=== PATIENT | male | born 1985 | race Caucasian/White ===

== ENCOUNTER 2020-04-26 01:42 | Inpatient (IN) | payer MEDICAID ==
[~2020-04-26] VITALS: Ht 170.2 cm; Wt 43.2 kg
[2020-04-26] VITALS (12 sets, daily range): BP systolic 103–123; BP diastolic 60–85
[2020-04-26] MEDS ORDERED: ONDANSETRON HCL 4 MG/2 ML VIAL IVP ONE ×2 (02:00→04:45)
[2020-04-26] MEDS ORDERED: SODIUM CHLORIDE 0.9% 1,000 ML IV ONE ×2 (02:00→03:15)
[2020-04-26 02:30] LABS: ABG A-A DIFF O2 37.8 mmHg (10-20.0); ABG BASE EXCESS -4.7 mmol/L (-2.0-3.0); ABG CARBOXYHEMOGLOBIN 0.4 % (0.0-1.5); ABG HCO3 21.8 mmol/L (22.0-26.0); ABG METHEMOGLOBIN 0.2 % (0.0-1.5); ABG OXYGEN CONTENT 22.5 mL/dL (15.0-23.0); ABG OXYGEN SATURATION 96.7 % (95.0-98.0); ABG OXYHEMOGLOBIN 96.1 % (94.0-100.0); ABG PCO2 26 mmHg (35-45); ABG PH 7.476 (7.350-7.450); ABG TOTAL HEMOGLOBIN 16.6 G/dL (12.0-18.0); PO2, ARTERIAL BG 81.8 mmHg (92.0-100.0); SOURCE, BLOOD GAS ARTERIAL; TEMPERATURE, FAHRENHEIT, BG 93.7 FAHREN (96.0-98.6)
[2020-04-26 02:31] LABS: O2 DEVICE,BLOOD GAS ROOM AIR (ROOM AIR); SITE, BLOOD GAS RT RADIAL
[2020-04-26 02:46] LABS: COVID AG,FIA SOURCE NASOPHARYNGEAL
[2020-04-26 03:11] LABS: BASOPHILS % (AUTO) 0.1 % (0.0-2.0); EOSINOPHILS % (AUTO) 0 % (1.0-6.0); HEMOGLOBIN 17.5 g/dL (13.5-17.5); LYMPHOCYTES # (AUTO) 1.1 K/uL (1.0-4.8); LYMPHOCYTES % (AUTO) 5.9 % (22.0-44.0); MEAN CORPUSCULAR HEMOGLOBIN 30.2 pg (26.0-34.0); MEAN CORPUSCULAR HGB CONC 30.8 G/dL (31.0-37.0); MEAN CORPUSCULAR VOLUME 98 fL (80-100); MONOCYTES # (AUTO) 2.1 K/uL (0.1-1.0); MONOCYTES % (AUTO) 11.4 % (2.0-9.0); NEUTROPHILS % (AUTO) 82.6 % (40.0-70.0); PLATELET COUNT (AUTO) 326 K/uL (150-450); RED BLOOD CELL COUNT(AUTO) 5.81 MIL/uL (4.50-5.90); RED CELL DISTRIBUTION WIDTH 13.7 % (11.5-14.5)
[2020-04-26 03:29] LABS: PROTHROMBIN TIME 10.7 SEC (9.4-11.6)
[2020-04-26 03:34] LABS: LIPASE 206 U/L (73-393)
[2020-04-26 03:40] LABS: ALANINE AMINOTRANSFERASE 34 U/L (12-78); ALBUMIN 4.8 g/dL (3.4-5.0); ALKALINE PHOSPHATASE 112 U/L (46-116); ANION GAP 32 mmol/L (8-16); ASPARTATE AMINOTRANSFERASE < 5 U/L (15-37); CALCIUM, TOTAL 10.2 mg/dL (8.8-10.5); CARBON DIOXIDE 24 mmol/L (22-29); CHLORIDE 81 mmol/L (98-107); CREATINE KINASE, TOTAL ONLY 14 U/L (39-308); CREATININE 2.93 mg/dL (0.60-1.30); GLOMERULAR FILTR. RATE CALC 25 mL/min (>60); SODIUM SERUM 137 mmol/L (136-145); TOTAL PROTEIN, SERUM 8.9 g/dL (6.4-8.2); UREA NITROGEN, BLOOD 49 mg/dL (7-18)
[2020-04-26] MEDS ORDERED: VANCOMYCIN HCL 1 GM/D5% WATER 200 ML IV ONE (03:45)
[2020-04-26] MEDS ORDERED: PIPERACILLIN/TAZO 3.375 GM/D5W 50 ML IV ONE (03:45)
[2020-04-26 03:53] LABS: B-TYPE NATRIURETIC PEPTIDE 55 pg/mL (0-100)
[2020-04-26 04:12] LABS: ACETONE,BLOOD 1:16 (NEGATIVE)
[2020-04-26 04:13] LABS: PHOSPHORUS 12.8 mg/dL (2.5-4.9)
[2020-04-26 04:15] LABS: POTASSIUM 2.9 mmol/L (3.5-5.1)
[2020-04-26 04:16] LABS: GLUCOSE,RANDOM 1349 mg/dL (70-110)
[2020-04-26 04:17] LABS: LACTIC ACID 3.9 mmol/L (0.4-2.0)
[2020-04-26] MEDS ORDERED: RINGERS SOLUTION,LACTATED 1,000 ML IV ONE ×2 (04:30→04:45)
[2020-04-26 04:42] LABS: APPEARANCE,URINE CLEAR (CLEAR); BILIRUBIN,URINE NEGATIVE (NEGATIVE); GLUCOSE, URINE (UA) >=1000 mg/dL (NEGATIVE); KETONES,URINE >=80 mg/dL (NEGATIVE); LEUKOCYTE ESTERASE ,URINE NEGATIVE (NEGATIVE); NITRATE,URINE NEGATIVE (NEGATIVE); OCCULT BLOOD,URINE NEGATIVE (NEGATIVE); PROTEIN,URINE NEGATIVE (NEGATIVE); UROBILINOGEN,URINE 0.2 mg/dL (<=1.0)
[2020-04-26] MEDS ORDERED: POTASSIUM CHLORIDE 20 MEQ ER TABLET PO ONE ×2 (05:00→10:15)
[2020-04-26] MEDS: POTASSIUM CHL 10 MEQ/WATER 50 ML IV SCH ×4 (05:01→09:13)
[2020-04-26 05:07] LABS: BACTERIA,URINE Rare /HPF (None Seen); RBC,URINE 0-2 /HPF (0-2); SQUAMOUS EPITHELIAL CELL,UR Few /LPF (None Seen); WBC,URINE 0-2 /HPF (0-5)
[2020-04-26] MEDS ORDERED: ONDANSETRON HCL 4 MG/2 ML VIAL IVP PRN (07:00)
[2020-04-26] MEDS ORDERED: 0.9% SODIUM CHLORIDE 10 ML SYRINGE IVP PRN (07:00)
[2020-04-26] MEDS ORDERED: ACETAMINOPHEN 325 MG TABLET PO PRN ×2 (07:00→21:30)
[2020-04-26] MEDS ORDERED: INSULIN REGULAR, HUMAN 100 UNITS/ML IVP ONE (11:00)
[2020-04-26] MEDS ORDERED: DEXTROSE 50%-WATER 25 GM/50 ML SYRINGE IVP PRN ×2 (11:00→21:30)
[2020-04-26] MEDS ORDERED: POTASSIUM CHLORIDE 40 MEQ in SODIUM CHLORIDE 0.45% 1,000 ML IV PRN (11:00)
[2020-04-26] MEDS ORDERED: SODIUM CHLORIDE 0.9% 1,000 ML IV SCH (11:00)
[2020-04-26] MEDS ORDERED: POTASSIUM CHL 20 MEQ/0.45% NS 1,000 ML IV PRN (11:00)
[2020-04-26] MEDS ORDERED: DEXTROSE 5%-0.45% SODIUM CHL 1,000 ML IV PRN (11:00)
[2020-04-26] MEDS ORDERED: SODIUM CHLORIDE 0.45% 1,000 ML IV PRN (11:00)
[2020-04-26] MEDS ORDERED: INSULIN REGULAR, HUMAN 100 UNITS in SODIUM CHLORIDE 0.9% 99 ML IV SCH ×2 (11:15)
[2020-04-26 11:23] LABS: BASOPHILS % (AUTO) 0.1 % (0.0-2.0); EOSINOPHILS % (AUTO) 0 % (1.0-6.0); HEMATOCRIT 48.9 % (41-53); LYMPHOCYTES # (AUTO) 1.4 K/uL (1.0-4.8); MEAN CORPUSCULAR HGB CONC 32.8 G/dL (31.0-37.0); MEAN CORPUSCULAR VOLUME 92 fL (80-100); MONOCYTES # (AUTO) 2.2 K/uL (0.1-1.0); MONOCYTES % (AUTO) 9.3 % (2.0-9.0); NEUTROPHILS # (AUTO) 19.8 K/uL (1.8-7.7); NEUTROPHILS % (AUTO) 84.6 % (40.0-70.0); PLATELET COUNT (AUTO) 288 K/uL (150-450); RED BLOOD CELL COUNT(AUTO) 5.34 MIL/uL (4.50-5.90); RED CELL DISTRIBUTION WIDTH 13.2 % (11.5-14.5)
[2020-04-26 11:33] LABS: ALBUMIN 4.1 g/dL (3.4-5.0); BILIRUBIN,TOTAL 0.8 mg/dL (0.1-1.0); CALCIUM, TOTAL 9.4 mg/dL (8.8-10.5); CREATININE 1.61 mg/dL (0.60-1.30); POTASSIUM 3.3 mmol/L (3.5-5.1); TOTAL PROTEIN, SERUM 7.5 g/dL (6.4-8.2)
[2020-04-26] MEDS ORDERED: POTASSIUM CHLORIDE 40 MEQ in SODIUM CHLORIDE 0.9% 1,000 ML IV ONE (12:30)
[2020-04-26] MEDS: INSULIN REGULAR, HUMAN 100 UNITS/ML IVP PRN ×2 (13:50→15:00)
[2020-04-26 17:13] LABS: CALCIUM, TOTAL 6.8 mg/dL (8.8-10.5); CARBON DIOXIDE 21 mmol/L (22-29); CHLORIDE 120 mmol/L (98-107); CREATININE 1.15 mg/dL (0.60-1.30); GLOMERULAR FILTR. RATE CALC > 60 mL/min (>60); GLUCOSE,RANDOM 197 mg/dL (70-110); POTASSIUM 3.6 mmol/L (3.5-5.1); UREA NITROGEN, BLOOD 25 mg/dL (7-18)
[2020-04-26 17:26] LABS: ANION GAP 16 mmol/L (8-16); SODIUM SERUM 157 mmol/L (136-145)
[2020-04-26] MEDS ORDERED: POTASSIUM CHLORIDE 40 MEQ in SODIUM CHLORIDE 0.45% 1,000 ML IV ONE (17:45)
[2020-04-26 20:11] LABS: ANION GAP 10 mmol/L (8-16); CARBON DIOXIDE 32 mmol/L (22-29); CHLORIDE 117 mmol/L (98-107); CREATININE 1.32 mg/dL (0.60-1.30); GLUCOSE,RANDOM 87 mg/dL (70-110); POTASSIUM 3.3 mmol/L (3.5-5.1); SODIUM SERUM 159 mmol/L (136-145); UREA NITROGEN, BLOOD 28 mg/dL (7-18)
[2020-04-26 20:12] LABS: CALCIUM, TOTAL 9.2 mg/dL (8.8-10.5); GLOMERULAR FILTR. RATE CALC > 60 mL/min (>60)
[2020-04-26 20:35] LABS: BASOPHILS % (AUTO) 0.2 % (0.0-2.0); EOSINOPHILS % (AUTO) 0.1 % (1.0-6.0); HEMATOCRIT 44.8 % (41-53); LYMPHOCYTES # (AUTO) 0.7 K/uL (1.0-4.8); LYMPHOCYTES % (AUTO) 4.3 % (22.0-44.0); MEAN CORPUSCULAR HEMOGLOBIN 30.3 pg (26.0-34.0); MEAN CORPUSCULAR HGB CONC 33.5 G/dL (31.0-37.0); MEAN CORPUSCULAR VOLUME 90 fL (80-100); MONOCYTES % (AUTO) 11.9 % (2.0-9.0); NEUTROPHILS # (AUTO) 14.3 K/uL (1.8-7.7); NEUTROPHILS % (AUTO) 83.5 % (40.0-70.0); PLATELET COUNT (AUTO) 258 K/uL (150-450); RED BLOOD CELL COUNT(AUTO) 4.95 MIL/uL (4.50-5.90); RED CELL DISTRIBUTION WIDTH 13.2 % (11.5-14.5)
[2020-04-26] MEDS ORDERED: MAGNESIUM OXIDE 400 MG TABLET PO PRN (21:30)
[2020-04-26] MEDS ORDERED: MAGNESIUM SULFATE 2 GM/WATER 50 ML IV PRN (21:30)
[2020-04-26] MEDS ORDERED: MAGNESIUM SULFATE 4 GM/WATER 100 ML IV PRN (21:30)
[2020-04-26] MEDS ORDERED: IPRATROPIUM BROMIDE 0.5 MG/2.5 ML NEB SOLUTION NEB PRN (21:30)
[2020-04-26] MEDS ORDERED: ALBUTEROL SULFATE 2.5 MG/0.5 ML NEB SOLUTION NEB PRN (21:30)
[2020-04-26] MEDS ORDERED: ZOLPIDEM TARTRATE 5 MG TABLET PO PRN (21:30)
[2020-04-26] MEDS ORDERED: OxyCODONE HCL/ACETAMINOPHEN 5-325 MG TABLET PO PRN (21:30)
[2020-04-26] MEDS ORDERED: BISACODYL 10 MG RECTAL RECTAL SUPPOSITORY PR PRN (21:30)
[2020-04-26 21:56] LABS: ALBUMIN 3.5 g/dL (3.4-5.0)
[2020-04-26 23:07] LABS: GLUCOMETER DEV NAME(LOC) AHU.; GLUCOSE,POINT OF CARE 143 MG/DL (70-110)
[2020-04-27] VITALS (11 sets, daily range): BP systolic 104–133; BP diastolic 57–87
[2020-04-27] MEDS: ONDANSETRON HCL 4 MG/2 ML VIAL IVP PRN ×4 (02:23→18:00)
[2020-04-27] MEDS: MORPHINE SULFATE 2 MG/ML SYRINGE IVP PRN ×3 (02:24→10:46)
[2020-04-27] MEDS: PIPERACILLIN/TAZO 3.375 GM/D5W 50 ML IV SCH ×5 (03:25→22:20)
[2020-04-27] MEDS: DEXTROSE 5%-WATER 1,000 ML IV SCH ×2 (03:25→13:00)
[2020-04-27 05:42] LABS: MAGNESIUM 2.4 mg/dL (1.80-2.40); PHOSPHORUS 3.3 mg/dL (2.5-4.9)
[2020-04-27 06:36] LABS: GLUCOMETER DEV NAME(LOC) AHU.; GLUCOSE,POINT OF CARE 390 MG/DL (70-110)
[2020-04-27] MEDS: INSULIN LISPRO 100 UNITS/ML SQ PRN ×4 (07:33→22:19)
[2020-04-27] MEDS: HEPARIN SODIUM,PORCINE 5,000 UNITS/ML VIAL SQ SCH ×3 (09:39→16:07)
[2020-04-27 09:54] LABS: GLUCOMETER DEV NAME(LOC) AHU.; GLUCOSE,POINT OF CARE 298 MG/DL (70-110)
[2020-04-27 09:54] LABS: GLUCOMETER DEV NAME(LOC) AHU.; GLUCOSE,POINT OF CARE 374 MG/DL (70-110)
[2020-04-27 11:28] LABS: GLUCOMETER DEV NAME(LOC) AHU.; GLUCOSE,POINT OF CARE 300 MG/DL (70-110)
[2020-04-27 12:53] LABS: GLUCOMETER DEV NAME(LOC) AHU.; GLUCOSE,POINT OF CARE 258 MG/DL (70-110)
[2020-04-27 14:31] LABS: GLUCOMETER DEV NAME(LOC) AHU.; GLUCOSE,POINT OF CARE 241 MG/DL (70-110)
[2020-04-27 15:53] LABS: GLUCOMETER DEV NAME(LOC) AHU.; GLUCOSE,POINT OF CARE 240 MG/DL (70-110)
[2020-04-27 16:30] LABS: HEMOGLOBIN 16.7 g/dL (13.5-17.5); MEAN CORPUSCULAR HGB CONC 33.4 G/dL (31.0-37.0); MEAN CORPUSCULAR VOLUME 90 fL (80-100); PLATELET COUNT (AUTO) 273 K/uL (150-450); RED BLOOD CELL COUNT(AUTO) 5.55 MIL/uL (4.50-5.90); RED CELL DISTRIBUTION WIDTH 13.4 % (11.5-14.5)
[2020-04-27 16:39] LABS: ANION GAP 8 mmol/L (8-16); CALCIUM, TOTAL 9.8 mg/dL (8.8-10.5); CARBON DIOXIDE 39 mmol/L (22-29); CHLORIDE 103 mmol/L (98-107); CREATININE 1.32 mg/dL (0.60-1.30); GLOMERULAR FILTR. RATE CALC > 60 mL/min (>60); GLUCOSE,RANDOM 255 mg/dL (70-110); SODIUM SERUM 150 mmol/L (136-145); UREA NITROGEN, BLOOD 35 mg/dL (7-18)
[2020-04-27 16:41] LABS: POTASSIUM 2.8 mmol/L (3.5-5.1)
[2020-04-27] MEDS ORDERED: POTASSIUM CHLORIDE 20 MEQ ER TABLET PO ONE ×2 (16:45→23:55)
[2020-04-27] MEDS ORDERED: MAGNESIUM OXIDE 400 MG TABLET PO PRN (16:45)
[2020-04-27] MEDS ORDERED: MAGNESIUM SULFATE 4 GM/WATER 100 ML IV PRN (16:45)
[2020-04-27] MEDS ORDERED: MAGNESIUM SULFATE 2 GM/WATER 50 ML IV PRN (16:45)
[2020-04-27 16:51] LABS: ALBUMIN 3.4 g/dL (3.4-5.0); BILIRUBIN,TOTAL 0.9 mg/dL (0.1-1.0); CALCIUM, TOTAL 10.3 mg/dL (8.8-10.5); CREATININE 1.4 mg/dL (0.60-1.30); FREE T4 (FREE THYROXINE) 1.59 ng/dL (0.76-1.46); MAGNESIUM 2.7 mg/dL (1.80-2.40); PHOSPHORUS 2.5 mg/dL (2.5-4.9); TOTAL PROTEIN, SERUM 7.6 g/dL (6.4-8.2)
[2020-04-27 16:57] LABS: POTASSIUM 2.9 mmol/L (3.5-5.1)
[2020-04-27] MEDS ORDERED: PROPRANOLOL HCL 10 MG TABLET PO SCH (17:00)
[2020-04-27 17:23] LABS: BAND NEUTROPHILS % (MANUAL) 30 % (0-5); LYMPHOCYTES % (MANUAL) 8 % (22-44); MONOCYTES % (MANUAL) 9 % (2-9); SEGMENTED NEUTROPHILS % 53 % (40-70)
[2020-04-27] MEDS ORDERED: SODIUM CHLORIDE 0.9% 1,000 ML ONE (17:58)
[2020-04-27 19:49] LABS: AMPHET/METH SCREEN,URINE NEGATIVE (NEGATIVE); BARBITURATE SCREEN, URINE NEGATIVE (NEGATIVE); BENZODIAZEPINES SCREEN,URINE NEGATIVE (NEGATIVE); CANNABINOID SCREEN,URINE NEGATIVE (NEGATIVE); COCAINE SCREEN,URINE NEGATIVE (NEGATIVE); METHADONE SCREEN, URINE NEGATIVE (NEGATIVE); OPIATE SCREEN,URINE POSITIVE (NEGATIVE)
[2020-04-27 19:51] LABS: PHENCYCLIDINE SCREEN,URINE NEGATIVE (NEGATIVE)
[2020-04-27] MEDS: POTASSIUM CHL 10 MEQ/WATER 50 ML IV PRN ×3 (20:15→22:20)
[2020-04-27 21:20] LABS: CALCIUM, TOTAL 9.7 mg/dL (8.8-10.5); CREATININE 1.52 mg/dL (0.60-1.30)
[2020-04-27 22:15] LABS: GLUCOMETER DEV NAME(LOC) AHU.; GLUCOSE,POINT OF CARE 318 MG/DL (70-110)
[2020-04-27 22:15] LABS: GLUCOMETER DEV NAME(LOC) AHU.; GLUCOSE,POINT OF CARE 243 MG/DL (70-110)
[2020-04-27] MEDS: PROPRANOLOL HCL 20 MG TABLET PO SCH (23:24)
[2020-04-28] VITALS: BP 103/65
[2020-04-28] MEDS: SODIUM CHLORIDE 0.45% 1,000 ML IV SCH ×2 (00:34→18:30)
[2020-04-28] MEDS: HEPARIN SODIUM,PORCINE 5,000 UNITS/ML VIAL SQ SCH ×4 (02:09→23:47)
[2020-04-28] MEDS: ONDANSETRON HCL 4 MG/2 ML VIAL IVP PRN ×2 (02:09→10:32)
[2020-04-28] MEDS: PROPRANOLOL HCL 20 MG TABLET PO SCH ×4 (03:27→20:55)
[2020-04-28 03:28] LABS: CALCIUM, TOTAL 9.1 mg/dL (8.8-10.5); CREATININE 1.53 mg/dL (0.60-1.30); MAGNESIUM 2.3 mg/dL (1.80-2.40); POTASSIUM 3.3 mmol/L (3.5-5.1)
[2020-04-28] MEDS: PIPERACILLIN/TAZO 3.375 GM/D5W 50 ML IV SCH ×4 (03:45→15:31)
[2020-04-28 04:34] VITALS: BP 95/63
[2020-04-28] MEDS ORDERED: IOVERSOL 350 MG/ML 100 ML VIAL ONE (04:55)
[2020-04-28] MEDS: INSULIN LISPRO 100 UNITS/ML SQ PRN ×4 (05:57→20:55)
[2020-04-28 07:21] VITALS: BP 97/59
[2020-04-28] MEDS: POTASSIUM CHL 10 MEQ/WATER 50 ML IV PRN ×5 (10:32→22:44)
[2020-04-28 11:13] LABS: CALCIUM, TOTAL 9.3 mg/dL (8.8-10.5); CREATININE 1.56 mg/dL (0.60-1.30)
[2020-04-28 11:17] LABS: POTASSIUM 2.8 mmol/L (3.5-5.1)
[2020-04-28 11:46] VITALS: BP 98/65
[2020-04-28 15:44] VITALS: BP 100/60
[2020-04-28 17:37] LABS: CALCIUM, TOTAL 9.3 mg/dL (8.8-10.5); CREATININE 1.73 mg/dL (0.60-1.30); POTASSIUM 3.1 mmol/L (3.5-5.1)
[2020-04-28 20:46] VITALS: BP 98/55
[2020-04-28 22:15] LABS: ANION GAP 4 mmol/L (8-16); CALCIUM, TOTAL 8.7 mg/dL (8.8-10.5); CARBON DIOXIDE 40 mmol/L (22-29); CHLORIDE 96 mmol/L (98-107); CREATININE 1.34 mg/dL (0.60-1.30); GLOMERULAR FILTR. RATE CALC > 60 mL/min (>60); GLUCOSE,RANDOM 162 mg/dL (70-110); SODIUM SERUM 140 mmol/L (136-145); UREA NITROGEN, BLOOD 41 mg/dL (7-18)
[2020-04-28 22:18] LABS: POTASSIUM 2.5 mmol/L (3.5-5.1)
[2020-04-29] MEDS: POTASSIUM CHL 10 MEQ/WATER 50 ML IV PRN ×7 (00:16→16:05)
[2020-04-29 00:42] VITALS: BP 117/72
[2020-04-29] MEDS: PROPRANOLOL HCL 20 MG TABLET PO SCH ×4 (03:15→22:33)
[2020-04-29] MEDS: PIPERACILLIN/TAZO 3.375 GM/D5W 50 ML IV SCH ×4 (03:21→22:33)
[2020-04-29 04:00] VITALS: BP 102/68
[2020-04-29] MEDS: INSULIN LISPRO 100 UNITS/ML SQ PRN ×4 (06:05→23:19)
[2020-04-29 07:25] VITALS: BP 105/60
[2020-04-29] MEDS: HEPARIN SODIUM,PORCINE 5,000 UNITS/ML VIAL SQ SCH ×2 (08:23→16:04)
[2020-04-29] MEDS: SODIUM CHLORIDE 0.45% 1,000 ML IV SCH ×2 (08:24→22:33)
[2020-04-29 09:19] LABS: ANION GAP 19 mmol/L (8-16); CALCIUM, TOTAL 8.5 mg/dL (8.8-10.5); CARBON DIOXIDE 29 mmol/L (22-29); CHLORIDE 93 mmol/L (98-107); CREATININE 1.24 mg/dL (0.60-1.30); GLOMERULAR FILTR. RATE CALC > 60 mL/min (>60); GLUCOSE,RANDOM 284 mg/dL (70-110); SODIUM SERUM 141 mmol/L (136-145); UREA NITROGEN, BLOOD 39 mg/dL (7-18)
[2020-04-29 09:23] LABS: POTASSIUM 2.9 mmol/L (3.5-5.1)
[2020-04-29 13:00] VITALS: BP 107/67
[2020-04-29 16:15] VITALS: BP 107/67
[2020-04-29 16:52] LABS: ANION GAP 13 mmol/L (8-16); CALCIUM, TOTAL 8.4 mg/dL (8.8-10.5); CARBON DIOXIDE 30 mmol/L (22-29); CHLORIDE 96 mmol/L (98-107); CREATININE 0.96 mg/dL (0.60-1.30); GLOMERULAR FILTR. RATE CALC > 60 mL/min (>60); GLUCOSE,RANDOM 215 mg/dL (70-110); POTASSIUM 3.5 mmol/L (3.5-5.1); SODIUM SERUM 139 mmol/L (136-145); UREA NITROGEN, BLOOD 30 mg/dL (7-18)
[2020-04-29 20:36] VITALS: BP 112/58
[2020-04-30] VITALS (8 sets, daily range): BP systolic 97–133; BP diastolic 56–70
[2020-04-30] MEDS: PIPERACILLIN/TAZO 3.375 GM/D5W 50 ML IV SCH ×4 (02:58→21:05)
[2020-04-30] MEDS: PROPRANOLOL HCL 20 MG TABLET PO SCH ×4 (02:58→21:04)
[2020-04-30] MEDS: INSULIN LISPRO 100 UNITS/ML SQ PRN ×3 (05:59→21:14)
[2020-04-30] MEDS: SODIUM CHLORIDE 0.45% 1,000 ML IV SCH (06:00)
[2020-04-30 07:34] LABS: ANION GAP 13 mmol/L (8-16); CALCIUM, TOTAL 9.4 mg/dL (8.8-10.5); CARBON DIOXIDE 35 mmol/L (22-29); CHLORIDE 95 mmol/L (98-107); CREATININE 1.01 mg/dL (0.60-1.30); GLOMERULAR FILTR. RATE CALC > 60 mL/min (>60); GLUCOSE,RANDOM 277 mg/dL (70-110); SODIUM SERUM 143 mmol/L (136-145); UREA NITROGEN, BLOOD 20 mg/dL (7-18)
[2020-04-30 07:38] LABS: POTASSIUM 2.4 mmol/L (3.5-5.1)
[2020-04-30] MEDS: POTASSIUM CHLORIDE 20 MEQ ER TABLET PO PRN (07:41)
[2020-04-30] MEDS: HEPARIN SODIUM,PORCINE 5,000 UNITS/ML VIAL SQ SCH ×4 (08:39→22:31)
[2020-04-30] MEDS: PANTOPRAZOLE SODIUM 40 MG DR TABLET PO SCH (11:08)
[2020-04-30] MEDS: THIAMINE 100 MG TABLET PO SCH (11:08)
[2020-04-30] MEDS: MULTIVITAMINS, THERAPEUTIC TABLET PO SCH (11:08)
[2020-04-30] MEDS: FOLIC ACID 1 MG TABLET PO SCH (11:08)
[2020-04-30] MEDS: SODIUM CHLORIDE 0.9% 1,000 ML IV SCH ×3 (11:09→22:33)
[2020-04-30] MEDS: POTASSIUM CHL 10 MEQ/WATER 50 ML IV PRN ×3 (12:37→16:18)
[2020-04-30] MEDS ORDERED: *CLINICAL-PERIPHERAL PARENTERAL NUTRITION DOSING CLINICAL ONE (13:45)
[2020-04-30 18:10] LABS: MAGNESIUM 2.6 mg/dL (1.80-2.40)
[2020-04-30] MEDS ORDERED: SODIUM CHLORIDE 0.9% 1,000 ML IV SCH (18:45)
[2020-04-30] MEDS ORDERED: PPN SOLUTION 1 EA, SODIUM CHLORIDE 70 MEQ, SODIUM PHOS,M-BASIC-D-BASIC 30 MEQ, POTASSIU... IV SCH ×8 (22:00)
[2020-05-01] VITALS (7 sets, daily range): BP systolic 90–104; BP diastolic 50–62
[2020-05-01] MEDS: POTASSIUM CHLORIDE 20 MEQ ER TABLET PO PRN (00:05)
[2020-05-01] MEDS: ONDANSETRON HCL 4 MG/2 ML VIAL IVP PRN (00:05)
[2020-05-01] MEDS: PROPRANOLOL HCL 20 MG TABLET PO SCH ×4 (03:15→21:15)
[2020-05-01] MEDS: PIPERACILLIN/TAZO 3.375 GM/D5W 50 ML IV SCH ×4 (04:20→22:30)
[2020-05-01] MEDS: INSULIN LISPRO 100 UNITS/ML SQ PRN ×4 (06:18→20:33)
[2020-05-01 06:40] LABS: EOSINOPHILS % (AUTO) 0.1 % (1.0-6.0); HEMATOCRIT 37.7 % (41-53); HEMOGLOBIN 12.6 g/dL (13.5-17.5); LYMPHOCYTES # (AUTO) 0.7 K/uL (1.0-4.8); LYMPHOCYTES % (AUTO) 7.8 % (22.0-44.0); MEAN CORPUSCULAR HEMOGLOBIN 30.2 pg (26.0-34.0); MEAN CORPUSCULAR HGB CONC 33.4 G/dL (31.0-37.0); MEAN CORPUSCULAR VOLUME 90 fL (80-100); NEUTROPHILS # (AUTO) 7.3 K/uL (1.8-7.7); NEUTROPHILS % (AUTO) 81.1 % (40.0-70.0); PLATELET COUNT (AUTO) 213 K/uL (150-450); RED BLOOD CELL COUNT(AUTO) 4.18 MIL/uL (4.50-5.90); RED CELL DISTRIBUTION WIDTH 12.7 % (11.5-14.5)
[2020-05-01 07:05] LABS: ALANINE AMINOTRANSFERASE 27 U/L (12-78); ALBUMIN 2.4 g/dL (3.4-5.0); ALKALINE PHOSPHATASE 55 U/L (46-116); ANION GAP 13 mmol/L (8-16); ASPARTATE AMINOTRANSFERASE 39 U/L (15-37); BILIRUBIN,TOTAL 0.6 mg/dL (0.1-1.0); CARBON DIOXIDE 35 mmol/L (22-29); CHLORIDE 98 mmol/L (98-107); CREATININE 0.91 mg/dL (0.60-1.30); GLOMERULAR FILTR. RATE CALC > 60 mL/min (>60); GLUCOSE,RANDOM 315 mg/dL (70-110); SODIUM SERUM 146 mmol/L (136-145); TOTAL PROTEIN, SERUM 5.9 g/dL (6.4-8.2); UREA NITROGEN, BLOOD 29 mg/dL (7-18)
[2020-05-01 07:08] LABS: POTASSIUM 2.6 mmol/L (3.5-5.1)
[2020-05-01] MEDS: HEPARIN SODIUM,PORCINE 5,000 UNITS/ML VIAL SQ SCH ×2 (08:00→16:07)
[2020-05-01] MEDS: POTASSIUM CHL 10 MEQ/WATER 50 ML IV PRN ×4 (08:23→18:18)
[2020-05-01] MEDS: FOLIC ACID 1 MG TABLET PO SCH (09:28)
[2020-05-01] MEDS: THIAMINE 100 MG TABLET PO SCH (09:30)
[2020-05-01] MEDS: MULTIVITAMINS, THERAPEUTIC TABLET PO SCH (09:30)
[2020-05-01] MEDS: PANTOPRAZOLE SODIUM 40 MG DR TABLET PO SCH (09:31)
[2020-05-01] MEDS ORDERED: MEPERIDINE-PF 25 MG/ML VIAL IVP PRN (10:15)
[2020-05-01] MEDS ORDERED: FentaNYL CITRATE PF 100 MCG/2 ML VIAL IVP PRN (10:15)
[2020-05-01] MEDS ORDERED: HYDROmorphone 2 MG/ML VIAL IVP PRN (10:15)
[2020-05-01] MEDS ORDERED: BUPIVACAINE LIPOSOME/PF 1.3%-13.3MG/ML SUSPENSION 20 ML VIAL INJ ONE (10:30)
[2020-05-01] MEDS: SODIUM CHLORIDE 0.9% 1,000 ML IV SCH ×3 (11:03→22:34)
[2020-05-01] MEDS ORDERED: RINGERS SOLUTION,LACTATED 1,000 ML IV ONE (11:30)
[2020-05-01] MEDS ORDERED: EPHEDrine SULFATE 50 MG/ML VIAL IM ONE (12:00)
[2020-05-01] MEDS ORDERED: FentaNYL CITRATE PF 100 MCG/2 ML VIAL IVP ONE (12:00)
[2020-05-01] MEDS ORDERED: ONDANSETRON HCL 4 MG/2 ML VIAL IVP ONE (12:00)
[2020-05-01] MEDS ORDERED: SUCCINYLCHOLINE CHLORIDE 20 MG/ML 10 ML VIAL IVP ONE (12:00)
[2020-05-01] MEDS ORDERED: PROPOFOL 1% 20 ML VIAL IVP ONE (12:00)
[2020-05-01] MEDS ORDERED: MIDAZOLAM HCL 2 MG/2 ML VIAL IVP ONE (12:00)
[2020-05-01] MEDS ORDERED: LIDOCAINE/PF 2% 5 ML VIAL IM ONE (12:00)
[2020-05-01] MEDS ORDERED: 0.9% SODIUM CHLORIDE 10 ML VIAL IVP ONE (12:00)
[2020-05-01] MEDS ORDERED: BUPIVACAINE HCL/PF 0.5% 30 ML VIAL ONE (12:13)
[2020-05-01 12:31] LABS: GLUCOMETER DEV NAME(LOC) SDS.; GLUCOSE,POINT OF CARE 208 MG/DL (70-110)
[2020-05-01] MEDS ORDERED: SODIUM CHLORIDE 0.9% 2,000 ML ONE (12:59)
[2020-05-01] MEDS ORDERED: SUGAMMADEX SODIUM 200 MG/2 ML VIAL IVP ONE (13:33)
[2020-05-01] MEDS: OXYGEN THERAPY IH SCH (20:10)
[2020-05-01] MEDS ORDERED: [UNRECOGNIZED DRUG - OTHER] IV SCH ×6 (22:00)
[2020-05-01] MEDS ORDERED: POTASSIUM CHLORIDE IV SCH ×6 (22:00)
[2020-05-01] MEDS ORDERED: SODIUM CHLORIDE IV SCH ×6 (22:00)
[2020-05-01] MEDS ORDERED: PPN IV SCH ×6 (22:00)
[2020-05-02] VITALS (7 sets, daily range): BP systolic 96–117; BP diastolic 50–71
[2020-05-02] MEDS: HEPARIN SODIUM,PORCINE 5,000 UNITS/ML VIAL SQ SCH ×4 (00:17→16:53)
[2020-05-02] MEDS: PROPRANOLOL HCL 20 MG TABLET PO SCH ×4 (03:15→21:03)
[2020-05-02] MEDS: PIPERACILLIN/TAZO 3.375 GM/D5W 50 ML IV SCH ×4 (03:54→21:04)
[2020-05-02 05:43] LABS: GLUCOMETER DEV NAME(LOC) SDS.; GLUCOSE,POINT OF CARE 150 MG/DL (70-110)
[2020-05-02 07:48] LABS: BASOPHILS % (AUTO) 0.4 % (0.0-2.0); EOSINOPHILS % (AUTO) 0.2 % (1.0-6.0); HEMATOCRIT 31.5 % (41-53); HEMOGLOBIN 10.6 g/dL (13.5-17.5); LYMPHOCYTES # (AUTO) 0.7 K/uL (1.0-4.8); MEAN CORPUSCULAR HEMOGLOBIN 30.6 pg (26.0-34.0); MEAN CORPUSCULAR HGB CONC 33.8 G/dL (31.0-37.0); MEAN CORPUSCULAR VOLUME 91 fL (80-100); MONOCYTES # (AUTO) 1.1 K/uL (0.1-1.0); MONOCYTES % (AUTO) 12.1 % (2.0-9.0); NEUTROPHILS # (AUTO) 7.2 K/uL (1.8-7.7); NEUTROPHILS % (AUTO) 79.3 % (40.0-70.0); PLATELET COUNT (AUTO) 169 K/uL (150-450); RED BLOOD CELL COUNT(AUTO) 3.48 MIL/uL (4.50-5.90); RED CELL DISTRIBUTION WIDTH 12.5 % (11.5-14.5)
[2020-05-02] MEDS: OXYGEN THERAPY IH SCH ×2 (08:00→21:16)
[2020-05-02 08:14] LABS: ANION GAP 11 mmol/L (8-16); CALCIUM, TOTAL 7.8 mg/dL (8.8-10.5); CARBON DIOXIDE 27 mmol/L (22-29); CHLORIDE 109 mmol/L (98-107); GLUCOSE,RANDOM 165 mg/dL (70-110); PHOSPHORUS 1.8 mg/dL (2.5-4.9); SODIUM SERUM 147 mmol/L (136-145); UREA NITROGEN, BLOOD 18 mg/dL (7-18)
[2020-05-02 08:27] LABS: CREATININE 0.66 mg/dL (0.60-1.30); GLOMERULAR FILTR. RATE CALC > 60 mL/min (>60)
[2020-05-02] MEDS: MULTIVITAMINS, THERAPEUTIC TABLET PO SCH (08:40)
[2020-05-02] MEDS: PANTOPRAZOLE SODIUM 40 MG DR TABLET PO SCH (08:40)
[2020-05-02] MEDS: FOLIC ACID 1 MG TABLET PO SCH (08:41)
[2020-05-02] MEDS: THIAMINE 100 MG TABLET PO SCH (08:41)
[2020-05-02 08:45] LABS: POTASSIUM 2.6 mmol/L (3.5-5.1)
[2020-05-02] MEDS: POTASSIUM CHL 10 MEQ/WATER 50 ML IV PRN (08:46)
[2020-05-02] MEDS ORDERED: POTASSIUM PHOS,M-BASIC-D-BASIC 30 MMOL in DEXTROSE 5%-WATER 250 ML IV ONE (09:00)
[2020-05-02] MEDS: METOCLOPRAMIDE HCL 5 MG/ML 2 ML VIAL IVP SCH ×3 (11:59→21:02)
[2020-05-02] MEDS: INSULIN LISPRO 100 UNITS/ML SQ PRN ×3 (12:00→21:04)
[2020-05-02] MEDS: SODIUM CHLORIDE 0.9% 1,000 ML IV SCH ×2 (13:41→21:05)
[2020-05-02] MEDS ORDERED: POTASSIUM PHOS M BASIC D BASIC IV SCH ×7 (22:00)
[2020-05-02] MEDS ORDERED: PPN IV SCH ×7 (22:00)
[2020-05-02] MEDS ORDERED: [UNRECOGNIZED DRUG - OTHER] IV SCH ×7 (22:00)
[2020-05-02] MEDS ORDERED: SODIUM CHLORIDE IV SCH ×7 (22:00)
[2020-05-03] MEDS: HEPARIN SODIUM,PORCINE 5,000 UNITS/ML VIAL SQ SCH ×3 (00:03→16:21)
[2020-05-03 03:35] VITALS: BP 112/63
[2020-05-03] MEDS: PIPERACILLIN/TAZO 3.375 GM/D5W 50 ML IV SCH ×4 (03:42→22:51)
[2020-05-03] MEDS: PROPRANOLOL HCL 20 MG TABLET PO SCH ×5 (03:42→21:15)
[2020-05-03] MEDS: MORPHINE SULFATE 2 MG/ML SYRINGE IVP PRN ×2 (03:43→21:18)
[2020-05-03] MEDS: METOCLOPRAMIDE HCL 5 MG/ML 2 ML VIAL IVP SCH ×4 (05:57→21:13)
[2020-05-03] MEDS: INSULIN LISPRO 100 UNITS/ML SQ PRN ×4 (06:00→21:53)
[2020-05-03 07:37] VITALS: BP 101/55
[2020-05-03 07:57] LABS: EOSINOPHILS % (AUTO) 0.4 % (1.0-6.0); HEMATOCRIT 30.7 % (41-53); HEMOGLOBIN 10.5 g/dL (13.5-17.5); LYMPHOCYTES % (AUTO) 9.9 % (22.0-44.0); MEAN CORPUSCULAR HEMOGLOBIN 30.7 pg (26.0-34.0); MEAN CORPUSCULAR HGB CONC 34.3 G/dL (31.0-37.0); MEAN CORPUSCULAR VOLUME 89 fL (80-100); MONOCYTES # (AUTO) 0.9 K/uL (0.1-1.0); MONOCYTES % (AUTO) 8.7 % (2.0-9.0); NEUTROPHILS # (AUTO) 8.1 K/uL (1.8-7.7); PLATELET COUNT (AUTO) 255 K/uL (150-450); RED BLOOD CELL COUNT(AUTO) 3.43 MIL/uL (4.50-5.90); RED CELL DISTRIBUTION WIDTH 12.6 % (11.5-14.5)
[2020-05-03] MEDS: OXYGEN THERAPY IH SCH ×2 (08:00→20:00)
[2020-05-03] MEDS: FOLIC ACID 1 MG TABLET PO SCH (08:11)
[2020-05-03] MEDS: THIAMINE 100 MG TABLET PO SCH (08:12)
[2020-05-03] MEDS: MULTIVITAMINS, THERAPEUTIC TABLET PO SCH (08:12)
[2020-05-03] MEDS: PANTOPRAZOLE SODIUM 40 MG DR TABLET PO SCH (08:13)
[2020-05-03 08:14] LABS: ALBUMIN 1.7 g/dL (3.4-5.0); ANION GAP 9 mmol/L (8-16); CALCIUM, TOTAL 8.1 mg/dL (8.8-10.5); CARBON DIOXIDE 27 mmol/L (22-29); CHLORIDE 106 mmol/L (98-107); CREATININE 0.61 mg/dL (0.60-1.30); GLOMERULAR FILTR. RATE CALC > 60 mL/min (>60); GLUCOSE,RANDOM 301 mg/dL (70-110); PHOSPHORUS 1.6 mg/dL (2.5-4.9); SODIUM SERUM 142 mmol/L (136-145); UREA NITROGEN, BLOOD 21 mg/dL (7-18)
[2020-05-03 08:16] LABS: POTASSIUM 2.6 mmol/L (3.5-5.1)
[2020-05-03] MEDS: POTASSIUM CHL 10 MEQ/WATER 50 ML IV PRN ×4 (08:22→21:15)
[2020-05-03] MEDS ORDERED: POTASSIUM PHOS,M-BASIC-D-BASIC 30 MMOL in DEXTROSE 5%-WATER 250 ML IV ONE (08:30)
[2020-05-03 11:34] VITALS: BP 105/55
[2020-05-03 15:44] VITALS: BP 99/59
[2020-05-03 19:50] VITALS: BP 98/67
[2020-05-03] MEDS: SODIUM CHLORIDE 0.9% 1,000 ML IV SCH (22:51)
[2020-05-03] MEDS: SODIUM CHLORIDE IV SCH ×7 (22:52)
[2020-05-03] MEDS: PPN IV SCH ×7 (22:52)
[2020-05-03] MEDS: POTASSIUM PHOS M BASIC D BASIC IV SCH ×7 (22:52)
[2020-05-03] MEDS: [UNRECOGNIZED DRUG - OTHER] IV SCH ×7 (22:52)
[2020-05-04] VITALS (7 sets, daily range): BP systolic 111–126; BP diastolic 56–74
[2020-05-04] MEDS: HEPARIN SODIUM,PORCINE 5,000 UNITS/ML VIAL SQ SCH ×3 (00:43→16:35)
[2020-05-04] MEDS: PROPRANOLOL HCL 20 MG TABLET PO SCH ×3 (03:15→16:35)
[2020-05-04] MEDS: PIPERACILLIN/TAZO 3.375 GM/D5W 50 ML IV SCH ×4 (04:18→22:07)
[2020-05-04] MEDS: INSULIN LISPRO 100 UNITS/ML SQ PRN ×4 (06:02→20:29)
[2020-05-04] MEDS: METOCLOPRAMIDE HCL 5 MG/ML 2 ML VIAL IVP SCH ×4 (06:49→20:13)
[2020-05-04 07:50] LABS: BASOPHILS % (AUTO) 0.2 % (0.0-2.0); EOSINOPHILS % (AUTO) 0.8 % (1.0-6.0); HEMATOCRIT 29.5 % (41-53); HEMOGLOBIN 9.9 g/dL (13.5-17.5); LYMPHOCYTES # (AUTO) 1.5 K/uL (1.0-4.8); LYMPHOCYTES % (AUTO) 9.8 % (22.0-44.0); MEAN CORPUSCULAR HEMOGLOBIN 30.1 pg (26.0-34.0); MEAN CORPUSCULAR HGB CONC 33.6 G/dL (31.0-37.0); MEAN CORPUSCULAR VOLUME 90 fL (80-100); MONOCYTES # (AUTO) 1.3 K/uL (0.1-1.0); MONOCYTES % (AUTO) 8.8 % (2.0-9.0); NEUTROPHILS % (AUTO) 80.4 % (40.0-70.0); PLATELET COUNT (AUTO) 298 K/uL (150-450); RED CELL DISTRIBUTION WIDTH 12.6 % (11.5-14.5)
[2020-05-04] MEDS: OXYGEN THERAPY IH SCH ×2 (08:00→20:00)
[2020-05-04 08:30] LABS: ALBUMIN 1.7 g/dL (3.4-5.0); ANION GAP 16 mmol/L (8-16); CARBON DIOXIDE 22 mmol/L (22-29); CHLORIDE 101 mmol/L (98-107); CREATININE 0.57 mg/dL (0.60-1.30); GLOMERULAR FILTR. RATE CALC > 60 mL/min (>60); GLUCOSE,RANDOM 268 mg/dL (70-110); PHOSPHORUS 2.8 mg/dL (2.5-4.9); POTASSIUM 3.6 mmol/L (3.5-5.1); SODIUM SERUM 139 mmol/L (136-145); UREA NITROGEN, BLOOD 20 mg/dL (7-18)
[2020-05-04] MEDS: THIAMINE 100 MG TABLET PO SCH (08:43)
[2020-05-04] MEDS: MULTIVITAMINS, THERAPEUTIC TABLET PO SCH (08:44)
[2020-05-04] MEDS: PANTOPRAZOLE SODIUM 40 MG DR TABLET PO SCH (08:44)
[2020-05-04] MEDS: FOLIC ACID 1 MG TABLET PO SCH (08:44)
[2020-05-04 16:01] LABS: GLUCOMETER DEV NAME(LOC) 5N.3; GLUCOSE,POINT OF CARE 300 MG/DL (70-110)
[2020-05-04 16:01] LABS: GLUCOMETER DEV NAME(LOC) 5N.3; GLUCOSE,POINT OF CARE 281 MG/DL (70-110)
[2020-05-04 16:02] LABS: GLUCOMETER DEV NAME(LOC) 5N.3; GLUCOSE,POINT OF CARE 343 MG/DL (70-110)
[2020-05-04 16:02] LABS: GLUCOMETER DEV NAME(LOC) 5N.3; GLUCOSE,POINT OF CARE 291 MG/DL (70-110)
[2020-05-04 16:02] LABS: GLUCOMETER DEV NAME(LOC) 5N.3; GLUCOSE,POINT OF CARE 202 MG/DL (70-110)
[2020-05-04 16:02] LABS: GLUCOMETER DEV NAME(LOC) 5N.3; GLUCOSE,POINT OF CARE 234 MG/DL (70-110)
[2020-05-04 16:03] LABS: GLUCOMETER DEV NAME(LOC) 5N.3; GLUCOSE,POINT OF CARE 193 MG/DL (70-110)
[2020-05-04 16:03] LABS: GLUCOMETER DEV NAME(LOC) 5N.3; GLUCOSE,POINT OF CARE 167 MG/DL (70-110)
[2020-05-04 16:03] LABS: GLUCOMETER DEV NAME(LOC) 5N.3; GLUCOSE,POINT OF CARE 153 MG/DL (70-110)
[2020-05-04 16:03] LABS: GLUCOMETER DEV NAME(LOC) 5N.3; GLUCOSE,POINT OF CARE 269 MG/DL (70-110)
[2020-05-04 16:04] LABS: GLUCOMETER DEV NAME(LOC) 5N.3; GLUCOSE,POINT OF CARE 313 MG/DL (70-110)
[2020-05-04 16:04] LABS: GLUCOMETER DEV NAME(LOC) 5N.3; GLUCOSE,POINT OF CARE 263 MG/DL (70-110)
[2020-05-04 16:04] LABS: GLUCOMETER DEV NAME(LOC) 5N.3; GLUCOSE,POINT OF CARE 252 MG/DL (70-110)
[2020-05-04] MEDS: MORPHINE SULFATE 2 MG/ML SYRINGE IVP PRN (20:13)
[2020-05-04] MEDS: [UNRECOGNIZED DRUG - OTHER] IV SCH ×7 (22:10)
[2020-05-04] MEDS: SODIUM CHLORIDE IV SCH ×7 (22:10)
[2020-05-04] MEDS: POTASSIUM PHOS M BASIC D BASIC IV SCH ×7 (22:10)
[2020-05-04] MEDS: PPN IV SCH ×7 (22:10)
[2020-05-05] VITALS (7 sets, daily range): BP systolic 100–118; BP diastolic 58–70
[2020-05-05] MEDS: HEPARIN SODIUM,PORCINE 5,000 UNITS/ML VIAL SQ SCH ×4 (00:03→23:35)
[2020-05-05] MEDS: SODIUM CHLORIDE 0.9% 1,000 ML IV SCH (00:03)
[2020-05-05] MEDS: PROPRANOLOL HCL 20 MG TABLET PO SCH ×5 (00:03→23:34)
[2020-05-05 01:44] LABS: APPEARANCE,URINE CLEAR (CLEAR); BILIRUBIN,URINE NEGATIVE (NEGATIVE); GLUCOSE, URINE (UA) >=1000 mg/dL (NEGATIVE); KETONES,URINE 40 mg/dL (NEGATIVE); LEUKOCYTE ESTERASE ,URINE NEGATIVE (NEGATIVE); NITRATE,URINE NEGATIVE (NEGATIVE); OCCULT BLOOD,URINE NEGATIVE (NEGATIVE); PH,URINE 5.5 (5.0-8.0); PROTEIN,URINE NEGATIVE (NEGATIVE); UROBILINOGEN,URINE 0.2 mg/dL (<=1.0)
[2020-05-05 01:52] LABS: BACTERIA,URINE None Seen /HPF (None Seen); RBC,URINE None Seen /HPF (0-2); SQUAMOUS EPITHELIAL CELL,UR Rare /LPF (None Seen); WBC,URINE 0-2 /HPF (0-5)
[2020-05-05 02:37] LABS: GLUCOMETER DEV NAME(LOC) 4E.2; GLUCOSE,POINT OF CARE 251 MG/DL (70-110)
[2020-05-05] MEDS: PIPERACILLIN/TAZO 3.375 GM/D5W 50 ML IV SCH ×4 (04:05→21:55)
[2020-05-05] MEDS: INSULIN LISPRO 100 UNITS/ML SQ PRN ×4 (05:54→20:08)
[2020-05-05] MEDS: METOCLOPRAMIDE HCL 5 MG/ML 2 ML VIAL IVP SCH ×4 (05:59→20:08)
[2020-05-05 06:48] LABS: GLUCOMETER DEV NAME(LOC) 4E.2; GLUCOSE,POINT OF CARE 258 MG/DL (70-110)
[2020-05-05 07:56] LABS: BASOPHILS % (AUTO) 0.2 % (0.0-2.0); EOSINOPHILS % (AUTO) 0.4 % (1.0-6.0); HEMATOCRIT 27.4 % (41-53); HEMOGLOBIN 9.1 g/dL (13.5-17.5); LYMPHOCYTES # (AUTO) 1.2 K/uL (1.0-4.8); LYMPHOCYTES % (AUTO) 8.6 % (22.0-44.0); MEAN CORPUSCULAR HEMOGLOBIN 30.6 pg (26.0-34.0); MEAN CORPUSCULAR HGB CONC 33.3 G/dL (31.0-37.0); MEAN CORPUSCULAR VOLUME 92 fL (80-100); MONOCYTES # (AUTO) 1.1 K/uL (0.1-1.0); MONOCYTES % (AUTO) 7.7 % (2.0-9.0); NEUTROPHILS # (AUTO) 11.5 K/uL (1.8-7.7); NEUTROPHILS % (AUTO) 83.1 % (40.0-70.0); PLATELET COUNT (AUTO) 380 K/uL (150-450); RED BLOOD CELL COUNT(AUTO) 2.97 MIL/uL (4.50-5.90); RED CELL DISTRIBUTION WIDTH 12.7 % (11.5-14.5)
[2020-05-05] MEDS: OXYGEN THERAPY IH SCH (08:00)
[2020-05-05] MEDS: THIAMINE 100 MG TABLET PO SCH (08:01)
[2020-05-05] MEDS: FOLIC ACID 1 MG TABLET PO SCH (08:01)
[2020-05-05] MEDS: PANTOPRAZOLE SODIUM 40 MG DR TABLET PO SCH ×3 (08:01→10:22)
[2020-05-05] MEDS: MULTIVITAMINS, THERAPEUTIC TABLET PO SCH (08:01)
[2020-05-05 08:47] LABS: ALANINE AMINOTRANSFERASE 102 U/L (12-78); ALBUMIN 1.7 g/dL (3.4-5.0); ALKALINE PHOSPHATASE 77 U/L (46-116); ANION GAP 11 mmol/L (8-16); ASPARTATE AMINOTRANSFERASE 52 U/L (15-37); BILIRUBIN,TOTAL 0.3 mg/dL (0.1-1.0); CALCIUM, TOTAL 8.1 mg/dL (8.8-10.5); CARBON DIOXIDE 19 mmol/L (22-29); CHLORIDE 103 mmol/L (98-107); CREATININE 0.61 mg/dL (0.60-1.30); GLOMERULAR FILTR. RATE CALC > 60 mL/min (>60); PHOSPHORUS 7.1 mg/dL (2.5-4.9); SODIUM SERUM 133 mmol/L (136-145); TOTAL PROTEIN, SERUM 5.5 g/dL (6.4-8.2); UREA NITROGEN, BLOOD 20 mg/dL (7-18)
[2020-05-05 09:01] LABS: GLUCOSE,RANDOM 426 mg/dL (70-110)
[2020-05-05] MEDS ORDERED: DOXYCYCLINE HYCLATE 100 MG in DEXTROSE 5%-WATER 100 ML IV SCH (11:00)
[2020-05-05] MEDS: CefTRIAXone 1 GM/DEXTROSE 50 ML IV SCH (11:25)
[2020-05-05 11:51] LABS: GLUCOMETER DEV NAME(LOC) 6N.1; GLUCOSE,POINT OF CARE 235 MG/DL (70-110)
[2020-05-05] MEDS: MetroNIDAZOLE 500 MG/NACL 100 ML IV SCH ×2 (12:35→20:07)
[2020-05-05 12:53] LABS: ANION GAP 21 mmol/L (8-16); CALCIUM, TOTAL 6.6 mg/dL (8.8-10.5); CARBON DIOXIDE 18 mmol/L (22-29); CHLORIDE 88 mmol/L (98-107); GLOMERULAR FILTR. RATE CALC > 60 mL/min (>60); POTASSIUM 3.3 mmol/L (3.5-5.1); SODIUM SERUM 127 mmol/L (136-145); UREA NITROGEN, BLOOD 17 mg/dL (7-18)
[2020-05-05 12:57] LABS: ALANINE AMINOTRANSFERASE 78 U/L (12-78); ALBUMIN 1.2 g/dL (3.4-5.0); ALKALINE PHOSPHATASE 69 U/L (46-116); ASPARTATE AMINOTRANSFERASE 36 U/L (15-37); BILIRUBIN,TOTAL 0.2 mg/dL (0.1-1.0); TOTAL PROTEIN, SERUM 6.5 g/dL (6.4-8.2)
[2020-05-05 13:32] LABS: GLUCOSE,RANDOM 891 mg/dL (70-110)
[2020-05-05 13:55] LABS: GLUCOMETER DEV NAME(LOC) 4E.2; GLUCOSE,POINT OF CARE 200 MG/DL (70-110)
[2020-05-05 15:18] LABS: PHOSPHORUS 3.4 mg/dL (2.5-4.9)
[2020-05-05 17:26] LABS: GLUCOMETER DEV NAME(LOC) 4E.2; GLUCOSE,POINT OF CARE 214 MG/DL (70-110)
[2020-05-05 20:48] LABS: GLUCOMETER DEV NAME(LOC) 6N.1; GLUCOSE,POINT OF CARE 157 MG/DL (70-110)
[2020-05-06] MEDS: POTASSIUM CHLORIDE 20 MEQ ER TABLET PO PRN (02:30)
[2020-05-06] MEDS: ONDANSETRON HCL 4 MG/2 ML VIAL IVP PRN (02:44)
[2020-05-06] MEDS ORDERED: SODIUM CHLORIDE 0.9% 500 ML IV ONE ×2 (02:56→08:15)
[2020-05-06] MEDS: POTASSIUM CHL 10 MEQ/WATER 50 ML IV PRN ×4 (03:09→08:12)
[2020-05-06] MEDS: SODIUM CHLORIDE 0.9% 1,000 ML IV SCH (03:14)
[2020-05-06] MEDS: PIPERACILLIN/TAZO 3.375 GM/D5W 50 ML IV SCH ×4 (03:16→22:47)
[2020-05-06 04:27] VITALS: BP 105/65
[2020-05-06] MEDS: MetroNIDAZOLE 500 MG/NACL 100 ML IV SCH (04:54)
[2020-05-06] MEDS: PROPRANOLOL HCL 20 MG TABLET PO SCH ×4 (06:00→23:00)
[2020-05-06] MEDS: METOCLOPRAMIDE HCL 5 MG/ML 2 ML VIAL IVP SCH ×4 (06:06→20:26)
[2020-05-06] MEDS: INSULIN LISPRO 100 UNITS/ML SQ PRN ×4 (06:12→20:33)
[2020-05-06 06:42] LABS: GLUCOMETER DEV NAME(LOC) 4E.2; GLUCOSE,POINT OF CARE 198 MG/DL (70-110)
[2020-05-06 07:39] VITALS: BP 106/65
[2020-05-06] MEDS: OXYGEN THERAPY IH SCH (08:00)
[2020-05-06] MEDS: MULTIVITAMINS, THERAPEUTIC TABLET PO SCH ×2 (08:25→08:29)
[2020-05-06] MEDS: THIAMINE 100 MG TABLET PO SCH ×2 (08:25→08:29)
[2020-05-06] MEDS: HEPARIN SODIUM,PORCINE 5,000 UNITS/ML VIAL SQ SCH ×3 (08:25→23:00)
[2020-05-06] MEDS: FOLIC ACID 1 MG TABLET PO SCH ×2 (08:25→08:29)
[2020-05-06] MEDS: PANTOPRAZOLE SODIUM 40 MG DR TABLET PO SCH ×2 (08:25→08:29)
[2020-05-06 10:19] LABS: BASOPHILS % (AUTO) 0.1 % (0.0-2.0); EOSINOPHILS % (AUTO) 0 % (1.0-6.0); HEMATOCRIT 29.4 % (41-53); HEMOGLOBIN 9.6 g/dL (13.5-17.5); LYMPHOCYTES # (AUTO) 0.8 K/uL (1.0-4.8); LYMPHOCYTES % (AUTO) 3.3 % (22.0-44.0); MEAN CORPUSCULAR HGB CONC 32.7 G/dL (31.0-37.0); MEAN CORPUSCULAR VOLUME 92 fL (80-100); MONOCYTES # (AUTO) 1.3 K/uL (0.1-1.0); MONOCYTES % (AUTO) 5.2 % (2.0-9.0); NEUTROPHILS # (AUTO) 23.7 K/uL (1.8-7.7); PLATELET COUNT (AUTO) 477 K/uL (150-450); RED CELL DISTRIBUTION WIDTH 12.5 % (11.5-14.5)
[2020-05-06 10:22] LABS: NEUTROPHILS % (AUTO) 91.4 % (40.0-70.0)
[2020-05-06 10:26] LABS: POTASSIUM 4.1 mmol/L (3.5-5.1)
[2020-05-06 10:28] LABS: HEMOGLOBIN A1C 13.3 % (3.8-5.6)
[2020-05-06 11:28] LABS: ANION GAP 8 mmol/L (8-16); CARBON DIOXIDE 20 mmol/L (22-29); CHLORIDE 105 mmol/L (98-107); GLUCOSE,RANDOM 216 mg/dL (70-110); SODIUM SERUM 133 mmol/L (136-145)
[2020-05-06 11:29] LABS: ALANINE AMINOTRANSFERASE 109 U/L (12-78); ALBUMIN 1.8 g/dL (3.4-5.0); ALKALINE PHOSPHATASE 98 U/L (46-116); ASPARTATE AMINOTRANSFERASE 42 U/L (15-37); BILIRUBIN,TOTAL 0.3 mg/dL (0.1-1.0); CALCIUM, TOTAL 7.9 mg/dL (8.8-10.5); CREATININE 0.76 mg/dL (0.60-1.30); GLOMERULAR FILTR. RATE CALC > 60 mL/min (>60); TOTAL PROTEIN, SERUM 5.8 g/dL (6.4-8.2); UREA NITROGEN, BLOOD 23 mg/dL (7-18)
[2020-05-06] MEDS: CefTRIAXone 1 GM/DEXTROSE 50 ML IV SCH (11:30)
[2020-05-06 11:33] VITALS: BP 98/64
[2020-05-06] MEDS ORDERED: INSULIN LISPRO 100 UNITS/ML SQ PRN (12:30)
[2020-05-06 15:38] LABS: GLUCOMETER DEV NAME(LOC) 4E.2; GLUCOSE,POINT OF CARE 204 MG/DL (70-110)
[2020-05-06 17:22] VITALS: BP 104/65
[2020-05-06] MEDS: MAGNESIUM HYDROXIDE SUSPENSION 30 ML UDCUP PO PRN (20:27)
[2020-05-06 20:31] VITALS: BP 108/59
[2020-05-07 00:06] LABS: GLUCOMETER DEV NAME(LOC) 6N.1; GLUCOSE,POINT OF CARE 215 MG/DL (70-110)
[2020-05-07 00:06] LABS: GLUCOMETER DEV NAME(LOC) 6N.1; GLUCOSE,POINT OF CARE 170 MG/DL (70-110)
[2020-05-07 01:13] LABS: GLUCOMETER DEV NAME(LOC) 4E.2; GLUCOSE,POINT OF CARE 167 MG/DL (70-110)
[2020-05-07] MEDS: PIPERACILLIN/TAZO 3.375 GM/D5W 50 ML IV SCH ×4 (03:47→21:41)
[2020-05-07] MEDS: SODIUM CHLORIDE 0.9% 1,000 ML IV SCH (03:56)
[2020-05-07] MEDS: INSULIN LISPRO 100 UNITS/ML SQ PRN ×5 (04:02→20:53)
[2020-05-07] MEDS: PROPRANOLOL HCL 20 MG TABLET PO SCH ×4 (06:00→17:52)
[2020-05-07] MEDS: METOCLOPRAMIDE HCL 5 MG/ML 2 ML VIAL IVP SCH ×4 (06:19→20:48)
[2020-05-07 06:41] LABS: GLUCOMETER DEV NAME(LOC) 6N.2; GLUCOSE,POINT OF CARE 239 MG/DL (70-110)
[2020-05-07 07:07] LABS: BASOPHILS % (AUTO) 0.1 % (0.0-2.0); EOSINOPHILS % (AUTO) 0.3 % (1.0-6.0); HEMATOCRIT 22.1 % (41-53); HEMOGLOBIN 7.2 g/dL (13.5-17.5); LYMPHOCYTES # (AUTO) 1.2 K/uL (1.0-4.8); LYMPHOCYTES % (AUTO) 6.8 % (22.0-44.0); MEAN CORPUSCULAR HGB CONC 32.7 G/dL (31.0-37.0); MEAN CORPUSCULAR VOLUME 92 fL (80-100); MONOCYTES # (AUTO) 1.2 K/uL (0.1-1.0); MONOCYTES % (AUTO) 7.2 % (2.0-9.0); NEUTROPHILS # (AUTO) 14.5 K/uL (1.8-7.7); PLATELET COUNT (AUTO) 426 K/uL (150-450); RED BLOOD CELL COUNT(AUTO) 2.41 MIL/uL (4.50-5.90); RED CELL DISTRIBUTION WIDTH 12.6 % (11.5-14.5)
[2020-05-07 07:39] LABS: ALANINE AMINOTRANSFERASE 71 U/L (12-78); ALBUMIN 1.4 g/dL (3.4-5.0); ALKALINE PHOSPHATASE 83 U/L (46-116); ANION GAP 10 mmol/L (8-16); ASPARTATE AMINOTRANSFERASE 24 U/L (15-37); BILIRUBIN,TOTAL 0.2 mg/dL (0.1-1.0); CALCIUM, TOTAL 7.4 mg/dL (8.8-10.5); CARBON DIOXIDE 19 mmol/L (22-29); CHLORIDE 108 mmol/L (98-107); GLUCOSE,RANDOM 191 mg/dL (70-110); POTASSIUM 3.5 mmol/L (3.5-5.1); SODIUM SERUM 137 mmol/L (136-145); TOTAL PROTEIN, SERUM 4.6 g/dL (6.4-8.2); UREA NITROGEN, BLOOD 22 mg/dL (7-18)
[2020-05-07 07:45] LABS: NEUTROPHILS % (AUTO) 85.6 % (40.0-70.0)
[2020-05-07] MEDS: OXYGEN THERAPY IH SCH ×2 (08:00→20:48)
[2020-05-07 08:04] LABS: CREATININE 0.68 mg/dL (0.60-1.30); GLOMERULAR FILTR. RATE CALC > 60 mL/min (>60)
[2020-05-07] MEDS: FOLIC ACID 1 MG TABLET PO SCH (08:25)
[2020-05-07] MEDS: HEPARIN SODIUM,PORCINE 5,000 UNITS/ML VIAL SQ SCH ×2 (08:25→16:06)
[2020-05-07] MEDS: THIAMINE 100 MG TABLET PO SCH (08:25)
[2020-05-07] MEDS: MULTIVITAMINS, THERAPEUTIC TABLET PO SCH (08:25)
[2020-05-07] MEDS: PANTOPRAZOLE SODIUM 40 MG DR TABLET PO SCH (08:25)
[2020-05-07 08:45] VITALS: BP 103/98
[2020-05-07 11:51] LABS: GLUCOMETER DEV NAME(LOC) 6N.2; GLUCOSE,POINT OF CARE 198 MG/DL (70-110)
[2020-05-07 15:30] LABS: GLUCOMETER DEV NAME(LOC) 4E.2; GLUCOSE,POINT OF CARE 202 MG/DL (70-110)
[2020-05-07 16:02] VITALS: BP 94/53
[2020-05-07 18:47] LABS: GLUCOMETER DEV NAME(LOC) 6N.2; GLUCOSE,POINT OF CARE 150 MG/DL (70-110)
[2020-05-07 19:55] VITALS: BP 117/67
[2020-05-08] VITALS (12 sets, daily range): BP systolic 93–109; BP diastolic 48–69
[2020-05-08] MEDS: PROPRANOLOL HCL 20 MG TABLET PO SCH ×6 (00:43→23:36)
[2020-05-08 01:00] LABS: GLUCOMETER DEV NAME(LOC) 6N.2; GLUCOSE,POINT OF CARE 149 MG/DL (70-110)
[2020-05-08] MEDS: HEPARIN SODIUM,PORCINE 5,000 UNITS/ML VIAL SQ SCH ×2 (01:23→09:11)
[2020-05-08] MEDS: PIPERACILLIN/TAZO 3.375 GM/D5W 50 ML IV SCH ×4 (04:01→21:14)
[2020-05-08] MEDS: INSULIN LISPRO 100 UNITS/ML SQ PRN ×4 (04:06→21:01)
[2020-05-08] MEDS: ONDANSETRON HCL 4 MG/2 ML VIAL IVP PRN (04:10)
[2020-05-08] MEDS: METOCLOPRAMIDE HCL 5 MG/ML 2 ML VIAL IVP SCH ×4 (06:13→20:15)
[2020-05-08] MEDS: THIAMINE 100 MG TABLET PO SCH (09:11)
[2020-05-08] MEDS: FOLIC ACID 1 MG TABLET PO SCH (09:11)
[2020-05-08] MEDS: MULTIVITAMINS, THERAPEUTIC TABLET PO SCH (09:11)
[2020-05-08] MEDS: PANTOPRAZOLE SODIUM 40 MG DR TABLET PO SCH (09:11)
[2020-05-08] MEDS: OXYGEN THERAPY IH SCH (09:12)
[2020-05-08 15:13] LABS: GLUCOMETER DEV NAME(LOC) 6N.2; GLUCOSE,POINT OF CARE 123 MG/DL (70-110)
[2020-05-08 15:13] LABS: GLUCOMETER DEV NAME(LOC) 6N.2; GLUCOSE,POINT OF CARE 164 MG/DL (70-110)
[2020-05-08 15:57] LABS: BASOPHILS % (AUTO) 0.1 % (0.0-2.0); EOSINOPHILS % (AUTO) 0.3 % (1.0-6.0); LYMPHOCYTES # (AUTO) 1.4 K/uL (1.0-4.8); LYMPHOCYTES % (AUTO) 11.7 % (22.0-44.0); MEAN CORPUSCULAR HEMOGLOBIN 29.9 pg (26.0-34.0); MEAN CORPUSCULAR HGB CONC 32.5 G/dL (31.0-37.0); MEAN CORPUSCULAR VOLUME 92 fL (80-100); MONOCYTES # (AUTO) 1.1 K/uL (0.1-1.0); MONOCYTES % (AUTO) 9.3 % (2.0-9.0); NEUTROPHILS # (AUTO) 9.6 K/uL (1.8-7.7); NEUTROPHILS % (AUTO) 78.6 % (40.0-70.0); PLATELET COUNT (AUTO) 510 K/uL (150-450); RED BLOOD CELL COUNT(AUTO) 2.26 MIL/uL (4.50-5.90)
[2020-05-08 16:08] LABS: HEMOGLOBIN 6.8 g/dL (13.5-17.5)
[2020-05-08 16:10] LABS: ANION GAP 11 mmol/L (8-16); CALCIUM, TOTAL 7.7 mg/dL (8.8-10.5); CARBON DIOXIDE 21 mmol/L (22-29); CHLORIDE 104 mmol/L (98-107); CREATININE 0.67 mg/dL (0.60-1.30); GLOMERULAR FILTR. RATE CALC > 60 mL/min (>60); GLUCOSE,RANDOM 179 mg/dL (70-110); POTASSIUM 4.2 mmol/L (3.5-5.1); SODIUM SERUM 136 mmol/L (136-145); UREA NITROGEN, BLOOD 27 mg/dL (7-18)
[2020-05-08 16:15] LABS: HEMATOCRIT 20.8 % (41-53)
[2020-05-08] MEDS ORDERED: IOVERSOL 350 MG/ML 100 ML VIAL ONE (18:55)
[2020-05-08] MEDS ORDERED: SODIUM CHLORIDE 0.9% 100 ML ONE (18:55)
[2020-05-08] MEDS ORDERED: SODIUM CHLORIDE 0.9% 500 ML IV ONE (21:56)
[2020-05-08 22:16] LABS: GLUCOMETER DEV NAME(LOC) 6N.2; GLUCOSE,POINT OF CARE 179 MG/DL (70-110)
[2020-05-08 23:41] LABS: GLUCOMETER DEV NAME(LOC) 4E.2; GLUCOSE,POINT OF CARE 186 MG/DL (70-110)
[2020-05-08 23:41] LABS: GLUCOMETER DEV NAME(LOC) 6N.1; GLUCOSE,POINT OF CARE 161 MG/DL (70-110)
[2020-05-09] VITALS (9 sets, daily range): BP systolic 82–109; BP diastolic 42–62
[2020-05-09] MEDS: INSULIN LISPRO 100 UNITS/ML SQ PRN ×5 (00:20→17:33)
[2020-05-09] MEDS: PIPERACILLIN/TAZO 3.375 GM/D5W 50 ML IV SCH ×4 (04:01→22:42)
[2020-05-09] MEDS: PROPRANOLOL HCL 20 MG TABLET PO SCH ×3 (06:00→17:42)
[2020-05-09] MEDS: METOCLOPRAMIDE HCL 5 MG/ML 2 ML VIAL IVP SCH ×4 (06:26→20:27)
[2020-05-09 06:44] LABS: BASOPHILS % (AUTO) 0.2 % (0.0-2.0); EOSINOPHILS % (AUTO) 0.5 % (1.0-6.0); HEMATOCRIT 22.4 % (41-53); HEMOGLOBIN 7.6 g/dL (13.5-17.5); LYMPHOCYTES # (AUTO) 1.4 K/uL (1.0-4.8); LYMPHOCYTES % (AUTO) 10.4 % (22.0-44.0); MEAN CORPUSCULAR HEMOGLOBIN 31.1 pg (26.0-34.0); MEAN CORPUSCULAR HGB CONC 34.1 G/dL (31.0-37.0); MEAN CORPUSCULAR VOLUME 91 fL (80-100); MONOCYTES # (AUTO) 1.2 K/uL (0.1-1.0); NEUTROPHILS # (AUTO) 10.4 K/uL (1.8-7.7); NEUTROPHILS % (AUTO) 79.9 % (40.0-70.0); PLATELET COUNT (AUTO) 448 K/uL (150-450); RED BLOOD CELL COUNT(AUTO) 2.46 MIL/uL (4.50-5.90); RED CELL DISTRIBUTION WIDTH 13.4 % (11.5-14.5)
[2020-05-09] MEDS: THIAMINE 100 MG TABLET PO SCH (09:00)
[2020-05-09] MEDS: MULTIVITAMINS, THERAPEUTIC TABLET PO SCH (09:00)
[2020-05-09] MEDS: FOLIC ACID 1 MG TABLET PO SCH (09:00)
[2020-05-09] MEDS: PANTOPRAZOLE SODIUM 40 MG/VIAL IVP SCH ×2 (09:13→20:26)
[2020-05-09] MEDS: DEXTROSE 5%-0.45% SODIUM CHL 1,000 ML IV SCH (17:20)
[2020-05-09 17:41] LABS: GLUCOMETER DEV NAME(LOC) 4E.2; GLUCOSE,POINT OF CARE 140 MG/DL (70-110)
[2020-05-09 17:41] LABS: GLUCOMETER DEV NAME(LOC) 4E.2; GLUCOSE,POINT OF CARE 179 MG/DL (70-110)
[2020-05-09 17:41] LABS: GLUCOMETER DEV NAME(LOC) 4E.2; GLUCOSE,POINT OF CARE 183 MG/DL (70-110)
[2020-05-09 17:41] LABS: GLUCOMETER DEV NAME(LOC) 4E.2; GLUCOSE,POINT OF CARE 210 MG/DL (70-110)
[2020-05-09] MEDS ORDERED: SODIUM CHLORIDE 0.9% 500 ML IV ONE (17:44)
[2020-05-09] MEDS: ALBUMIN HUMAN 25%-50GM/200ML 200 ML IV SCH (17:46)
[2020-05-09] MEDS ORDERED: SODIUM CHLORIDE 0.9% 250 ML IV ONE ×2 (17:58→18:00)
[2020-05-09 19:19] LABS: GLUCOMETER DEV NAME(LOC) 4E.2; GLUCOSE,POINT OF CARE 141 MG/DL (70-110)
[2020-05-10 00:09] LABS: GLUCOMETER DEV NAME(LOC) 4E.2; GLUCOSE,POINT OF CARE 184 MG/DL (70-110)
[2020-05-10] MEDS: ALBUMIN HUMAN 25%-50GM/200ML 200 ML IV SCH ×3 (01:00→16:46)
[2020-05-10 01:06] VITALS: BP 100/48
[2020-05-10] MEDS: ONDANSETRON HCL 4 MG/2 ML VIAL IVP PRN (02:50)
[2020-05-10] MEDS: PIPERACILLIN/TAZO 3.375 GM/D5W 50 ML IV SCH ×4 (04:35→23:27)
[2020-05-10] MEDS: PROPRANOLOL HCL 20 MG TABLET PO SCH ×5 (06:00→23:52)
[2020-05-10] MEDS: INSULIN LISPRO 100 UNITS/ML SQ PRN ×2 (06:07→23:58)
[2020-05-10 06:28] VITALS: BP 106/59
[2020-05-10 08:10] VITALS: BP 101/58
[2020-05-10] MEDS: PANTOPRAZOLE SODIUM 40 MG/VIAL IVP SCH ×2 (08:51→20:38)
[2020-05-10] MEDS: METOCLOPRAMIDE HCL 5 MG/ML 2 ML VIAL IVP SCH ×4 (08:51→20:39)
[2020-05-10] MEDS: OXYGEN THERAPY IH SCH ×2 (08:52→20:00)
[2020-05-10] MEDS: THIAMINE 100 MG/ML 2 ML VIAL IVP SCH (08:52)
[2020-05-10] MEDS: FOLIC ACID 1 MG TABLET PO SCH (09:00)
[2020-05-10] MEDS: MULTIVITAMINS, THERAPEUTIC TABLET PO SCH (09:00)
[2020-05-10 13:43] LABS: GLUCOMETER DEV NAME(LOC) 4E.2; GLUCOSE,POINT OF CARE 252 MG/DL (70-110)
[2020-05-10] MEDS ORDERED: *CLINICAL-TOTAL PARENTERAL NUTRITION DOSING CLINICAL ONE (15:00)
[2020-05-10 15:16] VITALS: BP 127/61
[2020-05-10] MEDS ORDERED: *CLINICAL-PERIPHERAL PARENTERAL NUTRITION DOSING CLINICAL ONE (15:30)
[2020-05-10] MEDS: DEXTROSE 5%-0.45% SODIUM CHL 1,000 ML IV SCH (15:30)
[2020-05-10] MEDS ORDERED: AA 4.25%/CALCIUM/LYTES/D5W 1,000 ML IV SCH ×2 (15:45→22:00)
[2020-05-10 19:00] VITALS: BP 106/51
[2020-05-10 23:42] VITALS: BP 118/70
[2020-05-11] VITALS (15 sets, daily range): BP systolic 90–126; BP diastolic 55–80
[2020-05-11] MEDS: ALBUMIN HUMAN 25%-50GM/200ML 200 ML IV SCH ×3 (00:16→16:53)
[2020-05-11 00:26] LABS: GLUCOMETER DEV NAME(LOC) 6N.1; GLUCOSE,POINT OF CARE 224 MG/DL (70-110)
[2020-05-11 00:26] LABS: GLUCOMETER DEV NAME(LOC) 6N.1; GLUCOSE,POINT OF CARE 258 MG/DL (70-110)
[2020-05-11] MEDS: PIPERACILLIN/TAZO 3.375 GM/D5W 50 ML IV SCH ×4 (04:30→22:30)
[2020-05-11] MEDS: METOCLOPRAMIDE HCL 5 MG/ML 2 ML VIAL IVP SCH ×4 (06:01→20:15)
[2020-05-11] MEDS: PROPRANOLOL HCL 20 MG TABLET PO SCH ×3 (06:01→16:56)
[2020-05-11 07:07] LABS: GLUCOMETER DEV NAME(LOC) 6N.1; GLUCOSE,POINT OF CARE 213 MG/DL (70-110)
[2020-05-11 07:22] LABS: ALBUMIN 3.5 g/dL (3.4-5.0); ANION GAP 13 mmol/L (8-16); CALCIUM, TOTAL 8.4 mg/dL (8.8-10.5); CARBON DIOXIDE 20 mmol/L (22-29); CHLORIDE 107 mmol/L (98-107); CREATININE 0.55 mg/dL (0.60-1.30); GLOMERULAR FILTR. RATE CALC > 60 mL/min (>60); GLUCOSE,RANDOM 242 mg/dL (70-110); POTASSIUM 3.2 mmol/L (3.5-5.1); SODIUM SERUM 140 mmol/L (136-145); UREA NITROGEN, BLOOD 19 mg/dL (7-18)
[2020-05-11 07:47] LABS: PHOSPHORUS 2.2 mg/dL (2.5-4.9)
[2020-05-11] MEDS: FOLIC ACID 1 MG TABLET PO SCH (09:00)
[2020-05-11] MEDS: MULTIVITAMINS, THERAPEUTIC TABLET PO SCH (09:00)
[2020-05-11] MEDS: OXYGEN THERAPY IH SCH (09:14)
[2020-05-11] MEDS: THIAMINE 100 MG/ML 2 ML VIAL IVP SCH (09:15)
[2020-05-11] MEDS: PANTOPRAZOLE SODIUM 40 MG/VIAL IVP SCH (09:16)
[2020-05-11 12:35] LABS: MEAN CORPUSCULAR HGB CONC 32.5 G/dL (31.0-37.0); MEAN CORPUSCULAR VOLUME 95 fL (80-100); PLATELET COUNT (AUTO) 322 K/uL (150-450); RED BLOOD CELL COUNT(AUTO) 1.63 MIL/uL (4.50-5.90); RED CELL DISTRIBUTION WIDTH 14.2 % (11.5-14.5)
[2020-05-11 12:47] LABS: HEMATOCRIT 15.5 % (41-53)
[2020-05-11] MEDS ORDERED: SODIUM CHLORIDE 0.9% 500 ML IV ONE (14:12)
[2020-05-11 14:24] LABS: BAND NEUTROPHILS % (MANUAL) 10 % (0-5); LYMPHOCYTES % (MANUAL) 4 % (22-44); MONOCYTES % (MANUAL) 3 % (2-9); SEGMENTED NEUTROPHILS % 83 % (40-70)
[2020-05-11 15:24] LABS: GLUCOMETER DEV NAME(LOC) 4E.2; GLUCOSE,POINT OF CARE 258 MG/DL (70-110)
[2020-05-11 18:02] LABS: GLUCOMETER DEV NAME(LOC) 6N.1; GLUCOSE,POINT OF CARE 214 MG/DL (70-110)
[2020-05-11] MEDS ORDERED: SODIUM CHLORIDE 0.9% 250 ML IV ONE ×2 (18:11→20:24)
[2020-05-11] MEDS: PANTOPRAZOLE SODIUM 80 MG in SODIUM CHLORIDE 0.9% 100 ML IV SCH (21:22)
[2020-05-11] MEDS ORDERED: PPN SOLUTION 1 EA, SODIUM CHLORIDE 60 MEQ, SODIUM PHOS,M-BASIC-D-BASIC 20 MEQ, POTASSIU... IV SCH ×10 (22:00)
[2020-05-12] VITALS (11 sets, daily range): BP systolic 101–133; BP diastolic 52–79
[2020-05-12] MEDS: ALBUMIN HUMAN 25%-50GM/200ML 200 ML IV SCH ×3 (00:56→16:03)
[2020-05-12] MEDS: INSULIN LISPRO 100 UNITS/ML SQ PRN ×3 (01:15→17:15)
[2020-05-12 01:32] LABS: GLUCOMETER DEV NAME(LOC) 6N.2; GLUCOSE,POINT OF CARE 246 MG/DL (70-110)
[2020-05-12] MEDS: PIPERACILLIN/TAZO 3.375 GM/D5W 50 ML IV SCH ×4 (04:07→21:20)
[2020-05-12] MEDS: PROPRANOLOL HCL 20 MG TABLET PO SCH ×4 (06:10→13:38)
[2020-05-12] MEDS: PANTOPRAZOLE SODIUM 80 MG in SODIUM CHLORIDE 0.9% 100 ML IV SCH ×2 (06:10→17:37)
[2020-05-12] MEDS: METOCLOPRAMIDE HCL 5 MG/ML 2 ML VIAL IVP SCH ×4 (06:10→21:21)
[2020-05-12 06:56] LABS: BASOPHILS % (AUTO) 0.1 % (0.0-2.0); EOSINOPHILS % (AUTO) 0 % (1.0-6.0); HEMATOCRIT 25.2 % (41-53); HEMOGLOBIN 8.5 g/dL (13.5-17.5); LYMPHOCYTES # (AUTO) 0.5 K/uL (1.0-4.8); LYMPHOCYTES % (AUTO) 5.3 % (22.0-44.0); MEAN CORPUSCULAR HEMOGLOBIN 31.5 pg (26.0-34.0); MEAN CORPUSCULAR HGB CONC 33.8 G/dL (31.0-37.0); MEAN CORPUSCULAR VOLUME 93 fL (80-100); MONOCYTES # (AUTO) 0.6 K/uL (0.1-1.0); MONOCYTES % (AUTO) 5.6 % (2.0-9.0); NEUTROPHILS # (AUTO) 9.2 K/uL (1.8-7.7); PLATELET COUNT (AUTO) 305 K/uL (150-450); RED BLOOD CELL COUNT(AUTO) 2.71 MIL/uL (4.50-5.90); RED CELL DISTRIBUTION WIDTH 14.9 % (11.5-14.5)
[2020-05-12 07:17] LABS: ANION GAP 18 mmol/L (8-16); CALCIUM, TOTAL 8.6 mg/dL (8.8-10.5); CARBON DIOXIDE 18 mmol/L (22-29); CHLORIDE 111 mmol/L (98-107); CREATININE 0.58 mg/dL (0.60-1.30); GLOMERULAR FILTR. RATE CALC > 60 mL/min (>60); GLUCOSE,RANDOM 282 mg/dL (70-110); PHOSPHORUS 2.7 mg/dL (2.5-4.9); POTASSIUM 3.4 mmol/L (3.5-5.1); SODIUM SERUM 147 mmol/L (136-145); UREA NITROGEN, BLOOD 21 mg/dL (7-18)
[2020-05-12 07:31] LABS: GLUCOMETER DEV NAME(LOC) 6N.1; GLUCOSE,POINT OF CARE 269 MG/DL (70-110)
[2020-05-12] MEDS: THIAMINE 100 MG/ML 2 ML VIAL IVP SCH (08:20)
[2020-05-12] MEDS: MULTIVITAMINS, THERAPEUTIC TABLET PO SCH (13:38)
[2020-05-12] MEDS: FOLIC ACID 1 MG TABLET PO SCH (13:38)
[2020-05-12 18:15] LABS: GLUCOMETER DEV NAME(LOC) 6N.1; GLUCOSE,POINT OF CARE 240 MG/DL (70-110)
[2020-05-12 20:23] LABS: GLUCOMETER DEV NAME(LOC) 4E.2; GLUCOSE,POINT OF CARE 244 MG/DL (70-110)
[2020-05-12] MEDS ORDERED: PPN IV SCH ×9 (22:00)
[2020-05-12] MEDS ORDERED: [UNRECOGNIZED DRUG - OTHER] IV SCH ×9 (22:00)
[2020-05-12] MEDS ORDERED: SODIUM ACETATE IV SCH ×9 (22:00)
[2020-05-12] MEDS ORDERED: POTASSIUM PHOS M BASIC D BASIC IV SCH ×9 (22:00)
[2020-05-12 22:24] LABS: GLUCOMETER DEV NAME(LOC) 6N.2; GLUCOSE,POINT OF CARE 291 MG/DL (70-110)
[2020-05-13] MEDS: PROPRANOLOL HCL 20 MG TABLET PO SCH ×5 (00:15→17:07)
[2020-05-13] MEDS: ALBUMIN HUMAN 25%-50GM/200ML 200 ML IV SCH ×3 (00:18→17:27)
[2020-05-13] MEDS: INSULIN LISPRO 100 UNITS/ML SQ PRN ×5 (00:18→20:17)
[2020-05-13 02:56] LABS: GLUCOMETER DEV NAME(LOC) 6N.2; GLUCOSE,POINT OF CARE 245 MG/DL (70-110)
[2020-05-13 03:00] VITALS: BP 134/73
[2020-05-13] MEDS: PIPERACILLIN/TAZO 3.375 GM/D5W 50 ML IV SCH ×4 (03:20→22:23)
[2020-05-13] MEDS: PANTOPRAZOLE SODIUM 80 MG in SODIUM CHLORIDE 0.9% 100 ML IV SCH ×2 (03:20→14:41)
[2020-05-13 04:53] LABS: GLUCOMETER DEV NAME(LOC) 4E.2; GLUCOSE,POINT OF CARE 216 MG/DL (70-110)
[2020-05-13] MEDS: METOCLOPRAMIDE HCL 5 MG/ML 2 ML VIAL IVP SCH ×4 (06:33→19:54)
[2020-05-13 07:15] LABS: ANION GAP 11 mmol/L (8-16); CALCIUM, TOTAL 8.7 mg/dL (8.8-10.5); CARBON DIOXIDE 24 mmol/L (22-29); CHLORIDE 114 mmol/L (98-107); CREATININE 0.61 mg/dL (0.60-1.30); GLOMERULAR FILTR. RATE CALC > 60 mL/min (>60); GLUCOSE,RANDOM 229 mg/dL (70-110); PHOSPHORUS 2.6 mg/dL (2.5-4.9); SODIUM SERUM 149 mmol/L (136-145); UREA NITROGEN, BLOOD 23 mg/dL (7-18)
[2020-05-13] MEDS: OXYGEN THERAPY IH SCH (08:00)
[2020-05-13] MEDS ORDERED: POTASSIUM PHOS,M-BASIC-D-BASIC 30 MMOL in DEXTROSE 5%-WATER 250 ML IV ONE (08:15)
[2020-05-13 08:52] VITALS: BP 108/63
[2020-05-13] MEDS: MULTIVITAMINS, THERAPEUTIC TABLET PO SCH ×2 (09:00→09:47)
[2020-05-13] MEDS: FOLIC ACID 1 MG TABLET PO SCH ×2 (09:00→12:20)
[2020-05-13] MEDS ORDERED: SODIUM CHLORIDE 0.9% 500 ML IV ONE (09:49)
[2020-05-13] MEDS ORDERED: SODIUM CHLORIDE 0.9% 250 ML IV ONE (09:49)
[2020-05-13] MEDS: THIAMINE 100 MG/ML 2 ML VIAL IVP SCH (10:12)
[2020-05-13] MEDS ORDERED: DEXTROSE 50%-WATER 25 GM/50 ML SYRINGE IVP PRN ×2 (11:45)
[2020-05-13] MEDS ORDERED: INSULIN LISPRO 100 UNITS/ML SQ PRN (11:45)
[2020-05-13 15:38] VITALS: BP 122/70
[2020-05-13 20:30] VITALS: BP 113/69
[2020-05-13] MEDS ORDERED: POTASSIUM ACETATE IV SCH ×6 (22:00)
[2020-05-13] MEDS ORDERED: PPN IV SCH ×6 (22:00)
[2020-05-13] MEDS ORDERED: [UNRECOGNIZED DRUG - OTHER] IV SCH ×6 (22:00)
[2020-05-13] MEDS ORDERED: POTASSIUM PHOS M BASIC D BASIC IV SCH ×6 (22:00)
[2020-05-14] VITALS (7 sets, daily range): BP systolic 107–134; BP diastolic 75–82
[2020-05-14] MEDS: ALBUMIN HUMAN 25%-50GM/200ML 200 ML IV SCH ×3 (00:45→17:04)
[2020-05-14] MEDS: PANTOPRAZOLE SODIUM 80 MG in SODIUM CHLORIDE 0.9% 100 ML IV SCH ×3 (00:47→17:03)
[2020-05-14] MEDS: PIPERACILLIN/TAZO 3.375 GM/D5W 50 ML IV SCH ×4 (04:36→23:40)
[2020-05-14] MEDS: METOCLOPRAMIDE HCL 5 MG/ML 2 ML VIAL IVP SCH ×4 (05:34→23:32)
[2020-05-14] MEDS: PROPRANOLOL HCL 20 MG TABLET PO SCH ×6 (05:34→23:46)
[2020-05-14] MEDS: INSULIN LISPRO 100 UNITS/ML SQ PRN ×4 (05:34→21:28)
[2020-05-14 06:43] LABS: EOSINOPHILS % (AUTO) 0.2 % (1.0-6.0); HEMATOCRIT 24.5 % (41-53); HEMOGLOBIN 8.3 g/dL (13.5-17.5); LYMPHOCYTES # (AUTO) 0.6 K/uL (1.0-4.8); LYMPHOCYTES % (AUTO) 6.4 % (22.0-44.0); MEAN CORPUSCULAR HEMOGLOBIN 32.1 pg (26.0-34.0); MEAN CORPUSCULAR VOLUME 94 fL (80-100); MONOCYTES # (AUTO) 0.5 K/uL (0.1-1.0); MONOCYTES % (AUTO) 6.2 % (2.0-9.0); NEUTROPHILS # (AUTO) 7.6 K/uL (1.8-7.7); PLATELET COUNT (AUTO) 242 K/uL (150-450); RED CELL DISTRIBUTION WIDTH 15.8 % (11.5-14.5)
[2020-05-14 07:13] LABS: ANION GAP 13 mmol/L (8-16); CARBON DIOXIDE 22 mmol/L (22-29); CHLORIDE 109 mmol/L (98-107); CREATININE 0.53 mg/dL (0.60-1.30); GLOMERULAR FILTR. RATE CALC > 60 mL/min (>60); GLUCOSE,RANDOM 246 mg/dL (70-110); POTASSIUM 3.5 mmol/L (3.5-5.1); SODIUM SERUM 144 mmol/L (136-145); UREA NITROGEN, BLOOD 24 mg/dL (7-18)
[2020-05-14 07:40] LABS: NEUTROPHILS % (AUTO) 87.2 % (40.0-70.0)
[2020-05-14] MEDS: OXYGEN THERAPY IH SCH ×2 (08:00→20:00)
[2020-05-14] MEDS: MULTIVITAMINS, THERAPEUTIC TABLET PO SCH ×2 (09:00→09:11)
[2020-05-14] MEDS: FOLIC ACID 1 MG TABLET PO SCH (09:00)
[2020-05-14] MEDS: THIAMINE 100 MG/ML 2 ML VIAL IVP SCH (09:11)
[2020-05-14 09:58] LABS: PHOSPHORUS 3.5 mg/dL (2.5-4.9)
[2020-05-14 12:11] LABS: GLUCOMETER DEV NAME(LOC) 4E.2; GLUCOSE,POINT OF CARE 229 MG/DL (70-110)
[2020-05-14 12:11] LABS: GLUCOMETER DEV NAME(LOC) 4E.2; GLUCOSE,POINT OF CARE 237 MG/DL (70-110)
[2020-05-14 12:11] LABS: GLUCOMETER DEV NAME(LOC) 4E.2; GLUCOSE,POINT OF CARE 192 MG/DL (70-110)
[2020-05-14 12:11] LABS: GLUCOMETER DEV NAME(LOC) 4E.2; GLUCOSE,POINT OF CARE 214 MG/DL (70-110)
[2020-05-14 17:34] LABS: GLUCOMETER DEV NAME(LOC) 6N.1; GLUCOSE,POINT OF CARE 261 MG/DL (70-110)
[2020-05-14 17:34] LABS: GLUCOMETER DEV NAME(LOC) 6N.1; GLUCOSE,POINT OF CARE 251 MG/DL (70-110)
[2020-05-14] MEDS ORDERED: [UNRECOGNIZED DRUG - OTHER] IV SCH ×6 (22:00)
[2020-05-14] MEDS ORDERED: POTASSIUM PHOS M BASIC D BASIC IV SCH ×6 (22:00)
[2020-05-14] MEDS ORDERED: POTASSIUM ACETATE IV SCH ×6 (22:00)
[2020-05-14] MEDS ORDERED: PPN IV SCH ×6 (22:00)
[2020-05-14 23:46] LABS: GLUCOMETER DEV NAME(LOC) 4E.2; GLUCOSE,POINT OF CARE 202 MG/DL (70-110)
[2020-05-14] MEDS: MAGNESIUM HYDROXIDE SUSPENSION 30 ML UDCUP PO PRN (23:49)
[2020-05-15] MEDS: ALBUMIN HUMAN 25%-50GM/200ML 200 ML IV SCH ×4 (01:20→23:57)
[2020-05-15] MEDS: PANTOPRAZOLE SODIUM 80 MG in SODIUM CHLORIDE 0.9% 100 ML IV SCH ×2 (03:41→13:50)
[2020-05-15] MEDS: PIPERACILLIN/TAZO 3.375 GM/D5W 50 ML IV SCH ×4 (03:42→23:13)
[2020-05-15 04:34] VITALS: BP 121/70
[2020-05-15] MEDS: METOCLOPRAMIDE HCL 5 MG/ML 2 ML VIAL IVP SCH ×4 (05:39→20:06)
[2020-05-15] MEDS: PROPRANOLOL HCL 20 MG TABLET PO SCH ×3 (05:43→17:18)
[2020-05-15] MEDS ORDERED: SODIUM CHLORIDE 0.9% 250 ML IV ONE ×2 (06:12→11:22)
[2020-05-15 06:26] LABS: GLUCOMETER DEV NAME(LOC) 6N.1; GLUCOSE,POINT OF CARE 259 MG/DL (70-110)
[2020-05-15 06:44] LABS: BASOPHILS % (AUTO) 0.1 % (0.0-2.0); EOSINOPHILS % (AUTO) 0.4 % (1.0-6.0); HEMATOCRIT 23.7 % (41-53); LYMPHOCYTES # (AUTO) 0.4 K/uL (1.0-4.8); LYMPHOCYTES % (AUTO) 6.3 % (22.0-44.0); MEAN CORPUSCULAR HEMOGLOBIN 32.1 pg (26.0-34.0); MEAN CORPUSCULAR HGB CONC 33.6 G/dL (31.0-37.0); MEAN CORPUSCULAR VOLUME 96 fL (80-100); MONOCYTES # (AUTO) 0.4 K/uL (0.1-1.0); MONOCYTES % (AUTO) 5.6 % (2.0-9.0); NEUTROPHILS # (AUTO) 6.1 K/uL (1.8-7.7); PLATELET COUNT (AUTO) 214 K/uL (150-450); RED BLOOD CELL COUNT(AUTO) 2.48 MIL/uL (4.50-5.90); RED CELL DISTRIBUTION WIDTH 16.2 % (11.5-14.5)
[2020-05-15 07:01] LABS: NEUTROPHILS % (AUTO) 87.6 % (40.0-70.0)
[2020-05-15 07:38] LABS: ALANINE AMINOTRANSFERASE 19 U/L (12-78); ALBUMIN 5.3 g/dL (3.4-5.0); ALKALINE PHOSPHATASE 39 U/L (46-116); ANION GAP 11 mmol/L (8-16); ASPARTATE AMINOTRANSFERASE 6 U/L (15-37); BILIRUBIN,TOTAL 0.9 mg/dL (0.1-1.0); CALCIUM, TOTAL 9.2 mg/dL (8.8-10.5); CARBON DIOXIDE 23 mmol/L (22-29); CHLORIDE 105 mmol/L (98-107); CREATININE 0.53 mg/dL (0.60-1.30); GLOMERULAR FILTR. RATE CALC > 60 mL/min (>60); GLUCOSE,RANDOM 259 mg/dL (70-110); PHOSPHORUS 2.9 mg/dL (2.5-4.9); POTASSIUM 3.5 mmol/L (3.5-5.1); SODIUM SERUM 139 mmol/L (136-145); TOTAL PROTEIN, SERUM 6.9 g/dL (6.4-8.2); UREA NITROGEN, BLOOD 25 mg/dL (7-18)
[2020-05-15 07:56] VITALS: BP 130/84
[2020-05-15] MEDS: OXYGEN THERAPY IH SCH (08:00)
[2020-05-15] MEDS: MULTIVITAMINS, THERAPEUTIC TABLET PO SCH (08:38)
[2020-05-15] MEDS: FOLIC ACID 1 MG TABLET PO SCH (08:38)
[2020-05-15] MEDS: THIAMINE 100 MG/ML 2 ML VIAL IVP SCH (08:38)
[2020-05-15] MEDS: BENZOCAINE/MENTHOL LOZENGE PO PRN (11:40)
[2020-05-15] MEDS: INSULIN LISPRO 100 UNITS/ML SQ PRN ×3 (12:07→20:50)
[2020-05-15 12:12] VITALS: BP 102/59
[2020-05-15] MEDS: BENZONATATE 100 MG CAPSULE PO PRN ×2 (16:37→23:57)
[2020-05-15 17:28] VITALS: BP 129/79
[2020-05-15 20:36] LABS: GLUCOMETER DEV NAME(LOC) 4E.2; GLUCOSE,POINT OF CARE 217 MG/DL (70-110)
[2020-05-15 20:36] LABS: GLUCOMETER DEV NAME(LOC) 4E.2; GLUCOSE,POINT OF CARE 249 MG/DL (70-110)
[2020-05-15 20:46] VITALS: BP 141/87
[2020-05-15] MEDS ORDERED: PPN IV SCH ×7 (22:00)
[2020-05-15] MEDS ORDERED: [UNRECOGNIZED DRUG - OTHER] IV SCH ×7 (22:00)
[2020-05-15] MEDS ORDERED: POTASSIUM PHOS M BASIC D BASIC IV SCH ×7 (22:00)
[2020-05-15] MEDS ORDERED: SODIUM ACETATE IV SCH ×7 (22:00)
[2020-05-15 23:02] LABS: GLUCOMETER DEV NAME(LOC) 6N.1; GLUCOSE,POINT OF CARE 236 MG/DL (70-110)
[2020-05-16 00:30] VITALS: BP 117/72
[2020-05-16] MEDS: PANTOPRAZOLE SODIUM 80 MG in SODIUM CHLORIDE 0.9% 100 ML IV SCH (01:33)
[2020-05-16] MEDS: PIPERACILLIN/TAZO 3.375 GM/D5W 50 ML IV SCH ×4 (02:58→21:29)
[2020-05-16] MEDS: METOCLOPRAMIDE HCL 5 MG/ML 2 ML VIAL IVP SCH ×4 (05:17→21:29)
[2020-05-16] MEDS: INSULIN LISPRO 100 UNITS/ML SQ PRN ×3 (05:20→18:03)
[2020-05-16 06:55] LABS: GLUCOMETER DEV NAME(LOC) 6N.1; GLUCOSE,POINT OF CARE 234 MG/DL (70-110)
[2020-05-16 07:21] LABS: BASOPHILS % (AUTO) 0.1 % (0.0-2.0); EOSINOPHILS % (AUTO) 0.5 % (1.0-6.0); LYMPHOCYTES # (AUTO) 0.4 K/uL (1.0-4.8); LYMPHOCYTES % (AUTO) 7.5 % (22.0-44.0); MEAN CORPUSCULAR HEMOGLOBIN 31.6 pg (26.0-34.0); MEAN CORPUSCULAR HGB CONC 33.1 G/dL (31.0-37.0); MEAN CORPUSCULAR VOLUME 95 fL (80-100); MONOCYTES # (AUTO) 0.4 K/uL (0.1-1.0); MONOCYTES % (AUTO) 8.1 % (2.0-9.0); NEUTROPHILS # (AUTO) 4.4 K/uL (1.8-7.7); NEUTROPHILS % (AUTO) 83.8 % (40.0-70.0); PLATELET COUNT (AUTO) 206 K/uL (150-450); RED BLOOD CELL COUNT(AUTO) 2.52 MIL/uL (4.50-5.90); RED CELL DISTRIBUTION WIDTH 16.7 % (11.5-14.5)
[2020-05-16] MEDS: OXYGEN THERAPY IH SCH (08:00)
[2020-05-16 08:02] LABS: ANION GAP 10 mmol/L (8-16); CALCIUM, TOTAL 9.3 mg/dL (8.8-10.5); CARBON DIOXIDE 26 mmol/L (22-29); CHLORIDE 108 mmol/L (98-107); CREATININE 0.44 mg/dL (0.60-1.30); GLOMERULAR FILTR. RATE CALC > 60 mL/min (>60); GLUCOSE,RANDOM 218 mg/dL (70-110); POTASSIUM 3.8 mmol/L (3.5-5.1); SODIUM SERUM 144 mmol/L (136-145); UREA NITROGEN, BLOOD 25 mg/dL (7-18)
[2020-05-16 08:11] VITALS: BP 135/94
[2020-05-16] MEDS: PROPRANOLOL HCL 20 MG TABLET PO SCH ×4 (08:31→18:02)
[2020-05-16] MEDS: THIAMINE 100 MG/ML 2 ML VIAL IVP SCH (08:31)
[2020-05-16] MEDS: BENZONATATE 100 MG CAPSULE PO PRN ×2 (08:32→21:28)
[2020-05-16] MEDS: ALBUMIN HUMAN 25%-50GM/200ML 200 ML IV SCH (08:32)
[2020-05-16] MEDS: FOLIC ACID 1 MG TABLET PO SCH (08:33)
[2020-05-16] MEDS: MULTIVITAMINS, THERAPEUTIC TABLET PO SCH (08:34)
[2020-05-16 09:12] LABS: PHOSPHORUS 2.5 mg/dL (2.5-4.9)
[2020-05-16 11:29] VITALS: BP 136/88
[2020-05-16 11:57] LABS: GLUCOMETER DEV NAME(LOC) 6N.1; GLUCOSE,POINT OF CARE 257 MG/DL (70-110)
[2020-05-16 15:45] VITALS: BP 136/86
[2020-05-16 17:05] LABS: GLUCOMETER DEV NAME(LOC) 6N.1; GLUCOSE,POINT OF CARE 218 MG/DL (70-110)
[2020-05-16 19:41] VITALS: BP 127/78
[2020-05-16] MEDS: PANTOPRAZOLE SODIUM 40 MG/VIAL IVP SCH (21:29)
[2020-05-17 00:45] VITALS: BP 142/85
[2020-05-17] MEDS: PROPRANOLOL HCL 20 MG TABLET PO SCH ×4 (00:49→18:00)
[2020-05-17] MEDS: INSULIN LISPRO 100 UNITS/ML SQ PRN ×5 (01:44→21:47)
[2020-05-17 04:14] VITALS: BP 104/58
[2020-05-17] MEDS: PIPERACILLIN/TAZO 3.375 GM/D5W 50 ML IV SCH ×4 (04:14→21:49)
[2020-05-17 05:16] LABS: GLUCOMETER DEV NAME(LOC) 4E.2; GLUCOSE,POINT OF CARE 227 MG/DL (70-110)
[2020-05-17] MEDS: METOCLOPRAMIDE HCL 5 MG/ML 2 ML VIAL IVP SCH ×4 (05:32→21:01)
[2020-05-17] MEDS: BENZOCAINE/MENTHOL LOZENGE PO PRN ×3 (05:32→11:27)
[2020-05-17] MEDS: OXYGEN THERAPY IH SCH (08:00)
[2020-05-17] MEDS: MULTIVITAMINS, THERAPEUTIC TABLET PO SCH (08:00)
[2020-05-17] MEDS: FOLIC ACID 1 MG TABLET PO SCH (08:00)
[2020-05-17] MEDS: PANTOPRAZOLE SODIUM 40 MG/VIAL IVP SCH ×2 (08:01→21:01)
[2020-05-17 08:08] VITALS: BP 140/73
[2020-05-17 09:18] LABS: BASOPHILS % (AUTO) 0.3 % (0.0-2.0); EOSINOPHILS % (AUTO) 0.9 % (1.0-6.0); HEMATOCRIT 24.8 % (41-53); HEMOGLOBIN 8.3 g/dL (13.5-17.5); LYMPHOCYTES # (AUTO) 0.4 K/uL (1.0-4.8); LYMPHOCYTES % (AUTO) 9.2 % (22.0-44.0); MEAN CORPUSCULAR HEMOGLOBIN 31.8 pg (26.0-34.0); MEAN CORPUSCULAR HGB CONC 33.5 G/dL (31.0-37.0); MEAN CORPUSCULAR VOLUME 95 fL (80-100); MONOCYTES # (AUTO) 0.5 K/uL (0.1-1.0); MONOCYTES % (AUTO) 10.4 % (2.0-9.0); NEUTROPHILS # (AUTO) 3.9 K/uL (1.8-7.7); NEUTROPHILS % (AUTO) 79.2 % (40.0-70.0); PLATELET COUNT (AUTO) 248 K/uL (150-450); RED BLOOD CELL COUNT(AUTO) 2.61 MIL/uL (4.50-5.90); RED CELL DISTRIBUTION WIDTH 16.7 % (11.5-14.5)
[2020-05-17] MEDS: THIAMINE 100 MG/ML 2 ML VIAL IVP SCH (09:41)
[2020-05-17 09:43] LABS: ALANINE AMINOTRANSFERASE 14 U/L (12-78); ALBUMIN 4.8 g/dL (3.4-5.0); ALKALINE PHOSPHATASE 37 U/L (46-116); ANION GAP 9 mmol/L (8-16); ASPARTATE AMINOTRANSFERASE 5 U/L (15-37); BILIRUBIN,TOTAL 0.7 mg/dL (0.1-1.0); CARBON DIOXIDE 25 mmol/L (22-29); CHLORIDE 105 mmol/L (98-107); GLOMERULAR FILTR. RATE CALC > 60 mL/min (>60); GLUCOSE,RANDOM 141 mg/dL (70-110); PHOSPHORUS 2.7 mg/dL (2.5-4.9); POTASSIUM 3.6 mmol/L (3.5-5.1); SODIUM SERUM 139 mmol/L (136-145); TOTAL PROTEIN, SERUM 6.7 g/dL (6.4-8.2); UREA NITROGEN, BLOOD 27 mg/dL (7-18)
[2020-05-17] MEDS ORDERED: SODIUM CHLORIDE 0.9% 250 ML IV ONE (11:02)
[2020-05-17 12:23] VITALS: BP 107/60
[2020-05-17 13:19] LABS: GLUCOMETER DEV NAME(LOC) 4E.2; GLUCOSE,POINT OF CARE 209 MG/DL (70-110)
[2020-05-17 13:20] LABS: GLUCOMETER DEV NAME(LOC) 6N.1; GLUCOSE,POINT OF CARE 172 MG/DL (70-110)
[2020-05-17 17:44] VITALS: BP 120/77
[2020-05-17 18:59] LABS: GLUCOMETER DEV NAME(LOC) 4E.2; GLUCOSE,POINT OF CARE 195 MG/DL (70-110)
[2020-05-17 19:00] VITALS: BP 140/74
[2020-05-18 00:24] VITALS: BP 117/70
[2020-05-18 04:00] VITALS: BP 117/74
[2020-05-18] MEDS: PIPERACILLIN/TAZO 3.375 GM/D5W 50 ML IV SCH ×2 (04:05→09:36)
[2020-05-18] MEDS: METOCLOPRAMIDE HCL 5 MG/ML 2 ML VIAL IVP SCH ×4 (06:26→21:19)
[2020-05-18] MEDS: INSULIN LISPRO 100 UNITS/ML SQ PRN ×4 (06:29→21:24)
[2020-05-18 06:30] LABS: GLUCOMETER DEV NAME(LOC) 4E.2; GLUCOSE,POINT OF CARE 262 MG/DL (70-110)
[2020-05-18 07:12] LABS: BASOPHILS % (AUTO) 0.3 % (0.0-2.0); EOSINOPHILS % (AUTO) 0.8 % (1.0-6.0); HEMATOCRIT 26.3 % (41-53); HEMOGLOBIN 8.7 g/dL (13.5-17.5); LYMPHOCYTES # (AUTO) 0.4 K/uL (1.0-4.8); LYMPHOCYTES % (AUTO) 5.9 % (22.0-44.0); MEAN CORPUSCULAR HEMOGLOBIN 31.6 pg (26.0-34.0); MEAN CORPUSCULAR VOLUME 96 fL (80-100); MONOCYTES # (AUTO) 0.6 K/uL (0.1-1.0); MONOCYTES % (AUTO) 8.6 % (2.0-9.0); NEUTROPHILS # (AUTO) 5.8 K/uL (1.8-7.7); NEUTROPHILS % (AUTO) 84.4 % (40.0-70.0); PLATELET COUNT (AUTO) 300 K/uL (150-450); RED BLOOD CELL COUNT(AUTO) 2.75 MIL/uL (4.50-5.90); RED CELL DISTRIBUTION WIDTH 16.6 % (11.5-14.5)
[2020-05-18 07:23] LABS: ALANINE AMINOTRANSFERASE 15 U/L (12-78); ALBUMIN 4.5 g/dL (3.4-5.0); ALKALINE PHOSPHATASE 59 U/L (46-116); ANION GAP 10 mmol/L (8-16); ASPARTATE AMINOTRANSFERASE < 5 U/L (15-37); BILIRUBIN,TOTAL 0.5 mg/dL (0.1-1.0); CALCIUM, TOTAL 8.6 mg/dL (8.8-10.5); CARBON DIOXIDE 25 mmol/L (22-29); CHLORIDE 104 mmol/L (98-107); CREATININE 0.53 mg/dL (0.60-1.30); GLOMERULAR FILTR. RATE CALC > 60 mL/min (>60); GLUCOSE,RANDOM 270 mg/dL (70-110); POTASSIUM 3.9 mmol/L (3.5-5.1); SODIUM SERUM 139 mmol/L (136-145); TOTAL PROTEIN, SERUM 6.6 g/dL (6.4-8.2); UREA NITROGEN, BLOOD 22 mg/dL (7-18)
[2020-05-18] MEDS: PROPRANOLOL HCL 20 MG TABLET PO SCH ×4 (07:23→17:12)
[2020-05-18 08:11] VITALS: BP 125/76
[2020-05-18] MEDS: THIAMINE 100 MG/ML 2 ML VIAL IVP SCH (08:32)
[2020-05-18] MEDS: PANTOPRAZOLE SODIUM 40 MG/VIAL IVP SCH ×2 (08:33→20:58)
[2020-05-18] MEDS: FOLIC ACID 1 MG TABLET PO SCH (08:33)
[2020-05-18] MEDS: MULTIVITAMINS, THERAPEUTIC TABLET PO SCH (08:33)
[2020-05-18 15:45] VITALS: BP 103/62
[2020-05-18 18:00] LABS: GLUCOMETER DEV NAME(LOC) 6N.1; GLUCOSE,POINT OF CARE 203 MG/DL (70-110)
[2020-05-18 18:00] LABS: GLUCOMETER DEV NAME(LOC) 6N.1; GLUCOSE,POINT OF CARE 190 MG/DL (70-110)
[2020-05-18] MEDS: ONDANSETRON HCL 4 MG/2 ML VIAL IVP PRN (20:58)
[2020-05-18 21:00] VITALS: BP 98/57
[2020-05-18 21:36] LABS: GLUCOMETER DEV NAME(LOC) 6N.1; GLUCOSE,POINT OF CARE 156 MG/DL (70-110)
[2020-05-19] VITALS: BP 101/55
[2020-05-19 00:36] VITALS: BP 101/55
[2020-05-19] MEDS: METOCLOPRAMIDE HCL 5 MG/ML 2 ML VIAL IVP SCH ×2 (05:37→11:50)
[2020-05-19] MEDS: PROPRANOLOL HCL 20 MG TABLET PO SCH ×3 (05:38→11:50)
[2020-05-19 05:44] VITALS: BP 98/61
[2020-05-19] MEDS: INSULIN LISPRO 100 UNITS/ML SQ PRN ×2 (05:44→12:09)
[2020-05-19 05:59] LABS: GLUCOMETER DEV NAME(LOC) 6N.1; GLUCOSE,POINT OF CARE 154 MG/DL (70-110)
[2020-05-19 07:07] LABS: BASOPHILS % (AUTO) 0.3 % (0.0-2.0); EOSINOPHILS % (AUTO) 1.1 % (1.0-6.0); HEMATOCRIT 24.5 % (41-53); HEMOGLOBIN 8.1 g/dL (13.5-17.5); LYMPHOCYTES # (AUTO) 0.6 K/uL (1.0-4.8); LYMPHOCYTES % (AUTO) 7.3 % (22.0-44.0); MEAN CORPUSCULAR HEMOGLOBIN 31.3 pg (26.0-34.0); MEAN CORPUSCULAR HGB CONC 33.1 G/dL (31.0-37.0); MEAN CORPUSCULAR VOLUME 94 fL (80-100); MONOCYTES # (AUTO) 0.6 K/uL (0.1-1.0); MONOCYTES % (AUTO) 8.3 % (2.0-9.0); NEUTROPHILS # (AUTO) 6.4 K/uL (1.8-7.7); PLATELET COUNT (AUTO) 276 K/uL (150-450); RED BLOOD CELL COUNT(AUTO) 2.59 MIL/uL (4.50-5.90)
[2020-05-19 07:28] LABS: ALANINE AMINOTRANSFERASE 14 U/L (12-78); ALBUMIN 4.1 g/dL (3.4-5.0); ALKALINE PHOSPHATASE 50 U/L (46-116); ANION GAP 9 mmol/L (8-16); ASPARTATE AMINOTRANSFERASE 6 U/L (15-37); BILIRUBIN,TOTAL 0.5 mg/dL (0.1-1.0); CALCIUM, TOTAL 8.8 mg/dL (8.8-10.5); CARBON DIOXIDE 27 mmol/L (22-29); CHLORIDE 107 mmol/L (98-107); CREATININE 0.63 mg/dL (0.60-1.30); GLOMERULAR FILTR. RATE CALC > 60 mL/min (>60); GLUCOSE,RANDOM 148 mg/dL (70-110); SODIUM SERUM 143 mmol/L (136-145); TOTAL PROTEIN, SERUM 6.4 g/dL (6.4-8.2); UREA NITROGEN, BLOOD 24 mg/dL (7-18)
[2020-05-19 07:35] VITALS: BP 91/53
[2020-05-19] MEDS: MULTIVITAMINS, THERAPEUTIC TABLET PO SCH (08:16)
[2020-05-19] MEDS: FOLIC ACID 1 MG TABLET PO SCH (08:16)
[2020-05-19] MEDS: THIAMINE 100 MG/ML 2 ML VIAL IVP SCH (08:16)
[2020-05-19] MEDS: PANTOPRAZOLE SODIUM 40 MG/VIAL IVP SCH (08:17)
[2020-05-19 11:26] VITALS: BP 97/53
[2020-05-19] MEDS ORDERED: FOLI0.4T6 PO (12:55)
[2020-05-19] MEDS ORDERED: MULT-1239 PO (12:56)
[2020-05-19] MEDS ORDERED: THIA100T80 PO (12:58)
[2020-05-19] MEDS ORDERED: ACET650S28 PO (13:00)
[2020-05-19] MEDS ORDERED: METO5TAB95 PO (13:02)
[2020-05-19] MEDS ORDERED: PANT-31 PO (13:03)
[2020-05-19] MEDS ORDERED: PROP10TA73 PO (13:03)
[2020-05-19 21:13] LABS: GLUCOMETER DEV NAME(LOC) 4E.2; GLUCOSE,POINT OF CARE 212 MG/DL (70-110)
== END 2020-05-19 14:35 | disposition home or self-care (01) | DRG 220 ==
LOC: EMS 01:48 → ICUN 14:00 → 5S 04-28 00:05 → 4E 05-04 17:40 → 6N 05-06 14:38 → 4E 05-13 06:08
PROVIDERS: ADMIT Hospitalist; ATTEND Hospitalist
PROC: 0D160ZA Bypass Stomach to Jejunum, Open Approach (ICD-10-PCS; principal; 2020-05-01 12:30)
PROC: 30233N1 Transfusion of Nonautologous Red Blood Cells into Peripheral Vein, Percutaneous Approach (ICD-10-PCS; 2020-05-08)
PROC: 0D9670Z Drainage of Stomach with Drainage Device, Via Natural or Artificial Opening (ICD-10-PCS; 2020-05-10)
PROC: 05HY33Z Insertion of Infusion Device into Upper Vein, Percutaneous Approach (ICD-10-PCS; 2020-05-10)
DX: K55.1 Chronic vascular disorders of intestine (principal); J69.0 Pneumonitis due to inhalation of food and vomit; E11.10 Type 2 diabetes mellitus with ketoacidosis without coma; R65.11 Systemic inflammatory response syndrome (SIRS) of non-infectious origin with acute organ dysfunction; N17.9 Acute kidney failure, unspecified; E86.0 Dehydration; D72.829 Elevated white blood cell count, unspecified; E11.40 Type 2 diabetes mellitus with diabetic neuropathy, unspecified; E87.0 Hyperosmolality and hypernatremia; E05.90 Thyrotoxicosis, unspecified without thyrotoxic crisis or storm; E87.6 Hypokalemia; E87.1 Hypo-osmolality and hyponatremia; R64 Cachexia; E43 Unspecified severe protein-calorie malnutrition; E87.5 Hyperkalemia; E11.43 Type 2 diabetes mellitus with diabetic autonomic (poly)neuropathy; D64.9 Anemia, unspecified; K31.84 Gastroparesis; Z79.4 Long term (current) use of insulin; Z87.891 Personal history of nicotine dependence; Z91.14 Patient's other noncompliance with medication regimen; Z20.822 Contact with and (suspected) exposure to COVID-19; Z68.1 Body mass index [BMI] 19.9 or less, adult
CPT/HCPCS: 36245; 36569; 74018; 74019; 74177; 74250; 76770; 76937; 80307; 82805; 83036; 83605; 83735; 83930; 84100; 84132; 84145; 84439; 84443; 86850; 86900; 86901; 86923; 87040; 87426; 93005; 93306; 93970; 94640; 99291; A9575; C9113; C9290; G0378; J0330; J0610; J0696; J1644; J1815; J2250; J2270; J2405; J2543; J2704; J2765; J3010; J3370; J3411; J3475; J3480; J3490; J7030; J7040; J7050; J7060; J7070; J7120; J7131; P9016; P9046; 36415-L1; 36415-TC; 71045-TC; 71046; 71046-TC; J7613; U0003; X7700